=== PATIENT | female | born 1995 | race Caucasian/White ===

== ENCOUNTER 2017-01-20 02:47 | Emergency (ER) | payer MEDICAID ==
[2017-01-20 06:59] LABS: ABSOLUTE BASOPHILS # (AUTO) 0.1 10^3/uL (0.0-0.2); ABSOLUTE EOSINOPHILS # (AUTO) 0.2 10^3/uL (0.0-0.6); ABSOLUTE LYMPHOCYTES (AUTO) 3.9 10^3/uL (0.5-4.7); ABSOLUTE MONOCYTES (AUTO) 0.9 10^3/uL (0.1-1.4); ABSOLUTE NEUT (AUTO) 11.9 10^3/uL (1.7-8.2); BASOPHILS % (AUTO) 0.4 % (0-2); HEMATOCRIT 36.1 % (36.0-47.0); HEMOGLOBIN 12.5 g/dL (12.0-15.5); HGB HCT DIFFERENCE 1.4; LYMPHOCYTES % (AUTO) 23.3 % (13-45); MEAN CORPUSCULAR HEMOGLOBIN 31.5 pg (27.0-33.4); MEAN CORPUSCULAR HGB CONC 34.6 g/dL (32.0-36.0); MEAN CORPUSCULAR VOLUME 91 fl (80-97); MONOCYTES % (AUTO) 5.2 % (3-13); RED BLOOD COUNT 3.97 10^6/uL (3.72-5.28); RED CELL DISTRIBUTION WIDTH 13.3 % (11.5-14.0); SEGMENTED NEUTROPHILS % (AUTO) 70.1 % (42-78); WHITE BLOOD COUNT 16.9 10^3/uL (4.0-10.5)
[2017-01-20 06:59] LABS: APPEARANCE,URINE TURBID; BILIRUBIN,URINE SMALL (NEGATIVE); GLUCOSE, URINE NEGATIVE (NEGATIVE); KETONES,URINE TRACE mg/dL (NEGATIVE); LEUKOCYTE ESTERASE,URINE NEGATIVE (NEGATIVE); NITRITE,URINE NEGATIVE (NEGATIVE); PROTEIN,URINE >=500 mg/dL (NEGATIVE); URINE SPECIFIC GRAVITY 1.031
[2017-01-20] MEDS ORDERED: NORMAL SALINE 1000 ML 1,000 ML IV ONE (07:20)
[2017-01-20 07:21] LABS: ALANINE AMINOTRANSFERASE 34 U/L (9-52); ALBUMIN 4.1 g/dL (3.5-5.0); ALKALINE PHOSPHATASE 72 U/L (38-126); ANION GAP 14 (5-19); ASPARTATE AMINO TRANSFERASE 19 U/L (14-36); BILIRUBIN,DIRECT 0.1 mg/dL (0.0-0.4); BILIRUBIN,TOTAL 0.4 mg/dL (0.2-1.3); BLOOD UREA NITROGEN 8 mg/dL (7-20); CALCIUM 9.4 mg/dL (8.4-10.2); CARBON DIOXIDE 21 mmol/L (22-30); CHLORIDE 103 mmol/L (98-107); CREATININE RESULT 0.72 mg/dL (0.52-1.25); GLUCOSE 98 mg/dL (75-110); SODIUM 138.4 mmol/L (137-145); TOTAL PROTEIN 6.8 g/dL (6.3-8.2)
--- NOTE | 2017-01-20 07:25 | ER Document Report ---
ED GI/ - General Chief Complaint: Vag Bleeding, +preg <12wks Stated Complaint: VAGINAL BLEEDING POST MISCARRIAGE Mode of Arrival: Ambulatory Information source: Patient Notes: Patient states that she currently is 9 weeks , and started to have cramping with vaginal bleeding yesterday. Patient went and saw her [facility] ACC[facility] REPRESENTATIVE and was given a prescription for Cytotec. Patient states that she took the medication and since has developed increased bleeding and cramping. Patient denies any nausea, vomiting, or fever. TRAVEL OUTSIDE OF THE [place] IN LAST 30 DAYS: No - HPI Patient complains to provider of: Pelvic pain, . No: Vomiting Onset: Yesterday Timing/Duration: Persistent Quality of pain: Cramping Pain Level: 4 Context: Location: Pelvis Vaginal bleeding (Compared to normal period): Heavier, Passing clots Menstrual period history: Associated symptoms: denies: Dysuria, Fever, Nausea, Urinary hesitancy, Urinary frequency, Urinary retention, Vomiting Exacerbated by: Denies Relieved by: Denies Similar symptoms previously: Yes Recently seen / treated by doctor: Yes - Related Data Allergies/Adverse Reactions: Penicillins Allergy (Severe, Verified 11/16/14 14:38) Anaphylaxis Past Medical History - General Information source: Patient Last Menstrual Period: 9 weeks - Social History Smoking Status: Current Every Day Smoker Chew tobacco use (# tins/day): No Frequency of alcohol use: None Drug Abuse: None Occupation: none Family History: Reviewed & Not Pertinent Patient has suicidal ideation: No Patient has homicidal ideation: No - Medical History Medical History: Negative Renal/ Medical History: Denies: Hx Peritoneal Dialysis Past Surgical History: Reports: Hx Section Review of Systems - Review of Systems Constitutional: No symptoms reported. denies: Fever, Recent illness EENT: No symptoms reported Cardiovascular: No symptoms reported Respiratory: No symptoms reported Gastrointestinal: Abdominal pain. denies: Diarrhea, Nausea, Vomiting Genitourinary: No symptoms reported. denies: Dysuria, Flank pain Female Genitourinary: , Vaginal bleeding Musculoskeletal: Back pain Skin: No symptoms reported Hematologic/Lymphatic: No symptoms reported Neurological/Psychological: No symptoms reported Physical Exam - Vital signs Vitals: Temp Pulse Resp BP Pulse Ox 98.2 F 106 H 17 131/62 H 98 01/20/17 02:50 01/20/17 02:50 01/20/17 02:50 01/20/17 02:50 01/20/17 02:50 - General General appearance: Appears well, Alert In distress: None - HEENT Head: Normocephalic, Atraumatic Eyes: Normal Nasal: Normal Mouth/Lips: Normal Mucous membranes: Normal Neck: Normal, Supple. No: Lymphadenopathy - Respiratory Respiratory status: No respiratory distress Chest status: Nontender Breath sounds: Normal. No: Rales, Rhonchi, Stridor, Wheezing Chest palpation: Normal - Cardiovascular Rhythm: Regular Heart sounds: S1 appreciated, S2 appreciated Murmur: No - Abdominal Inspection: Obese Distension: No distension Bowel sounds: Normal Tenderness: Tender - Lower pelvic Organomegaly: No organomegaly - Genitourinary External exam: Normal Speculum exam: Other - Unable to visualize cervix due to vaginal length Vaginal bleeding: Mild Bimanuel exam: Other - Mild uterine tenderness. No: Adnexal tenderness - Back Back: Normal, Nontender. No: CVA tenderness - Extremities General upper extremity: Normal inspection, Normal strength General lower extremity: Normal inspection, Normal strength - Neurological Neuro grossly intact: Yes Cognition: Normal [place] Coma Scale Eye Opening: Spontaneous [place] Coma Scale Verbal: Oriented [place] Coma Scale Motor: Obeys Commands [place] Coma Scale Total: 15 - Psychological Associated symptoms: Normal affect, Normal mood - Skin Skin Temperature: Warm Skin Moisture: Dry Skin Color: Normal Course - Re-evaluation Re-evalutation: 01/20/17 08:[address] Higgins regarding patient presentation and management. 01/20/17 09:19 Call placed to consult with Dr. Mei, message left to return call 01/20/17 09:[address] alvarado who recommends having patient call the office before noon today to make a follow-up appointment. Recommends having patient continued to take her tramadol as needed and may give her nausea medication if needed to help with her symptoms. - Vital Signs Vital signs: Temp Pulse Resp BP Pulse Ox 97.9 F 82 16 108/54 L 91 L 01/20/17 09:50 01/20/17 09:50 01/20/17 09:50 01/20/17 09:50 01/20/17 09:50 - Laboratory Result Diagrams: 01/20/17 06:50 01/20/17 06:50 Laboratory results interpreted by me: 01/20/17 01/20/1701/20/17 05:42 06:50 06:50 WBC 16.9 H Absolute Neutrophils 11.9 H Carbon Dioxide 21 L Beta HCG, Quant 1602.40 H Urine Protein >=500 H Urine Ketones TRACE H Urine Blood SMALL H Urine Bilirubin SMALL H Urine Urobilinogen 2.0 H 01/20/17 09:30 Labs- Entire Visit 01/20/17 01/20/17 01/20/17 05:42 06:50 06:50 WBC 16.9 H RBC 3.97 Hgb 12.5 Hct 36.1 MCV 91 MCH 31.5 MCHC 34.6 RDW 13.3 Plt Count 242 Seg Neutrophils % 70.1 Lymphocytes % 23.3 Monocytes % 5.2 Eosinophils % 1.0 Basophils % 0.4 Absolute Neutrophils 11.9 H Absolute Lymphocytes 3.9 Absolute Monocytes 0.9 Absolute Eosinophils 0.2 Absolute Basophils 0.1 Sodium 138.4 Potassium 4.0 Chloride 103 Carbon Dioxide 21 L Anion Gap 14 BUN 8 Creatinine 0.72 Est GFR ( Amer) > 60 Est GFR (Non-Af Amer) > 60 Glucose 98 Calcium 9.4 Total Bilirubin 0.4 Direct Bilirubin 0.1 Indirect Bilirubin Not Reportable Neonat Total Bilirubin Not Reportable AST 19 ALT 34 Alkaline Phosphatase 72 Total Protein 6.8 Albumin 4.1 Beta HCG, Quant 1602.40 H Total Beta HCG POSITIVE Urine Color RED Urine Appearance TURBID Urine pH 5.0 Ur Specific Onset 1.031 Urine Protein >=500 H Urine Glucose (UA) NEGATIVE Urine Ketones TRACE H Urine Blood SMALL H Urine Nitrite NEGATIVE Urine Bilirubin SMALL H Urine Urobilinogen 2.0 H Ur Leukocyte Esterase NEGATIVE Urine RBC (Auto) 1 Urine Mucus (Auto) RARE Urine Ascorbic Acid NEGATIVE Blood Type Rhogam Indicated 01/20/17 06:50 WBC RBC Hgb Hct MCV MCH MCHC RDW Plt Count Seg Neutrophils % Lymphocytes % Monocytes % Eosinophils % Basophils % Absolute Neutrophils Absolute Lymphocytes Absolute Monocytes Absolute Eosinophils Absolute Basophils Sodium Potassium Chloride Carbon Dioxide Anion Gap BUN Creatinine Est GFR ( Amer) Est GFR (Non-Af Amer) Glucose Calcium Total Bilirubin Direct Bilirubin Indirect Bilirubin Neonat Total Bilirubin AST ALT Alkaline Phosphatase Total Protein Albumin Beta HCG, Quant Total Beta HCG Urine Color Urine Appearance Urine pH Ur Specific Onset Urine Protein Urine Glucose (UA) Urine Ketones Urine Blood Urine Nitrite Urine Bilirubin Urine Urobilinogen Ur Leukocyte Esterase Urine RBC (Auto) Urine Mucus (Auto) Urine Ascorbic Acid Blood Type B POSITIVE Rhogam Indicated RHOGAM NOT INDICATED 01/20/17 19:56 - Diagnostic Test Radiology reviewed: Reports reviewed Discharge - Discharge Clinical Impression: Vagina bleeding, Pelvic cramping Condition: Stable Disposition: HOME, SELF-CARE Instructions: Miscarriage Impending ([facility]) Additional Instructions: Return immediately for any new or worsening symptoms, increased pain, increased bleeding, fever, or any concerning symptoms Followup with your primary care provider, call tomorrow to make a followup appointment Call your MAJ[facility] ACCOUNT REPRESENTATIVE office today before noon to make a follow-up appointment to be seen for a recheck. Continue to take your pain medication as prescribed. Referrals: [facility] [Provider Group] - 01/21/17
[2017-01-20] MEDS ORDERED: OXYCODONE-ACETAMINOPHEN 5-325 MG TABLET PO ONE (08:34)
[2017-01-20 10:21] VITALS: BP 108/54
== END 2017-01-20 10:00 | disposition home or self-care (01) ==
LOC: ER 02:47
DX: O20.9 Hemorrhage in early pregnancy, unspecified (principal); R10.2 Pelvic and perineal pain; O99.331 Smoking (tobacco) complicating pregnancy, first trimester; Z3A.09 9 weeks gestation of pregnancy; Z88.0 Allergy status to penicillin
CPT/HCPCS: 99284; 96360; 86900; 86901; 36415; 87086; 84702; 85025; 80053; 81001; 76817; 93976; J7030

== ENCOUNTER 2018-05-15 20:13 | Emergency (ER) | payer MEDICAID ==
--- NOTE | 2018-05-15 20:35 | ER Document Report ---
ED Medical Screen (RME) - General Chief Complaint: Vaginal Bleeding Stated Complaint: CRAMPING, BLEEDING Time Seen by Provider: 05/15/18 20:33 Mode of Arrival: Ambulatory Information source: Patient Notes: This is a 22-year-old female 3 para 1, history of one miscarriage, 17 weeks presents to the ER with some vaginal bleeding with passage of clots. Patient states that she feels like she has had continual fluid leakage. She denies any difficulty urinating. She did call the on-call OB doctor at this hospital was told to come to the emergency room. She denies any significant pain at this time. Her blood type is B+. TRAVEL OUTSIDE OF THE [place] IN LAST 30 DAYS: No - Related Data Allergies/Adverse Reactions: Penicillins Allergy (Severe, Verified 11/16/14 14:38) Anaphylaxis Past Medical History - Social History Chew tobacco use (# tins/day): No Frequency of alcohol use: None Drug Abuse: None Renal/ Medical History: Denies: Hx Peritoneal Dialysis Psychiatric Medical History: Reports: Hx Attention Deficit Hyperactivity Disorder Past Surgical History: Reports: Hx Section
[2018-05-15] MEDS ORDERED: ACETAMINOPHEN 325 MG TABLET PO ONE (21:19)
--- NOTE | 2018-05-15 21:20 | ER Document Report ---
ED GI/ - General Chief Complaint: Vaginal Bleeding Stated Complaint: CRAMPING, BLEEDING Time Seen by Provider: 05/15/18 20:33 Mode of Arrival: Ambulatory Notes: Patient is a 22-year-old female, at 17 weeks gestation by first trimester ultrasound, that comes to the emergency department for chief complaint of vaginal bleeding and lower abdominal cramping. Symptoms started yesterday, she states yesterday she was evaluated at [facility]. She states earlier today she passed a few clots and had heavier bleeding but then this reduced to spotting again. She denies fever, vomiting, dysuria, injury, vaginal discharge otherwise. Past medical history includes 1 miscarriage, 1 , she takes Zofran and likely just, she denies any other medical history. TRAVEL OUTSIDE OF THE [place] IN LAST 30 DAYS: No - Related Data Allergies/Adverse Reactions: Penicillins Allergy (Severe, Verified 11/16/14 14:38) Anaphylaxis Past Medical History - General Information source: Patient - Social History Smoking Status: Current Every Day Smoker Chew tobacco use (# tins/day): No Frequency of alcohol use: None Drug Abuse: None Lives with: Family Family History: Reviewed & Not Pertinent Patient has suicidal ideation: No Patient has homicidal ideation: No Renal/ Medical History: Denies: Hx Peritoneal Dialysis Psychiatric Medical History: Reports: Hx Attention Deficit Hyperactivity Disorder Past Surgical History: Reports: Hx Section - Immunizations Hx Diphtheria, Pertussis, Tetanus Vaccination: Yes Review of Systems - Review of Systems Constitutional: No symptoms reported EENT: No symptoms reported Cardiovascular: No symptoms reported Respiratory: No symptoms reported Gastrointestinal: See HPI Genitourinary: See HPI Female Genitourinary: See HPI Musculoskeletal: No symptoms reported Skin: No symptoms reported Hematologic/Lymphatic: No symptoms reported Neurological/Psychological: No symptoms reported Physical Exam - Vital signs Vitals: Temp Pulse Resp BP Pulse Ox 97.7 F 96 13 123/67 98 05/15/18 20:34 05/15/18 20:34 05/15/18 20:34 05/15/18 20:34 05/15/18 20:34 - Notes Notes: GENERAL: Alert, interacts well. No acute distress. HEAD: Normocephalic, atraumatic. EYES: Pupils equal, round, and reactive to light. Extraocular movements intact. ENT: Oral mucosa moist, tongue midline. NECK: Full range of motion. Supple. Trachea midline. LUNGS: Clear to auscultation bilaterally, no wheezes, rales, or rhonchi. No respiratory distress. HEART: Regular rate and rhythm. No murmur ABDOMEN: Minimal generalized tenderness, nonspecific, not specifically reproducible, no rigidity or guarding. Non-distended. Bowel sounds present in all 4 quadrants. EXTREMITIES: Moves all 4 extremities spontaneously. No edema, normal radial and dorsalis pedis pulses bilaterally. No cyanosis. BACK: no cervical, thoracic, lumbar midline tenderness. No saddle anesthesia, normal distal neurovascular exam. NEUROLOGICAL: Alert and oriented x3. Normal speech. [cranial nerves II through XII grossly intact]. PSYCH: Normal affect, normal mood. SKIN: Warm, dry, normal turgor. No rashes or lesions noted. Course - Re-evaluation Re-evalutation: Patient alert, well-appearing, unremarkable abdominal exam, vital signs unremarkable. CBC, urinalysis without concerning findings. RhoGam is not indicated. Ultrasound showing living IUP, shows marginal placenta previa, otherwise no acute findings. On reevaluation patient sleeping, easily aroused, having minimal spotting occasionally but no heavy bleeding. Provided with a copy of her ultrasound, this was discussed in detail. Patient states she already has a very close follow-up with [facility] for additional management, discussed return precautions, patient states satisfaction and agreement. - Vital Signs Vital signs: Temp Pulse Resp BP Pulse Ox 98.5 F 72 16 115/62 99 05/15/18 23:10 05/15/18 23:10 05/15/18 23:10 05/15/18 23:10 05/15/18 23:10 - Laboratory Result Diagrams: 05/15/18 21:31 Laboratory results interpreted by me: 05/15/18 05/15/18 21:31 22:05 WBC 14.5 H Hct 35.5 L Absolute Neutrophils 10.3 H Urine Urobilinogen 2.0 H Discharge - Discharge Clinical Impression: Vaginal bleeding during Condition: Stable Disposition: HOME, SELF-CARE Additional Instructions: Your ultrasound shows marginal placenta previa, this can cause some bleeding, your hemoglobin is not low at this time. Follow-up with your COMMERCIAL ARTIST for additional evaluation and management including tracking of this. Remaining evaluation does not show any concerning findings. Return if you worsen including heavy bleeding, passing out, severe pain, fever, uncontrolled vomiting, or any other concerning or worsening symptoms. Forms: Smoking Cessation Education Referrals: TRUPTI WALDROP MD [Primary Care Provider] - Follow up as needed
[2018-05-15 21:45] LABS: ABSOLUTE EOSINOPHILS # (AUTO) 0.2 10^3/uL (0.0-0.6); ABSOLUTE LYMPHOCYTES (AUTO) 3.1 10^3/uL (0.5-4.7); ABSOLUTE MONOCYTES (AUTO) 0.9 10^3/uL (0.1-1.4); ABSOLUTE NEUT (AUTO) 10.3 10^3/uL (1.7-8.2); BASOPHILS % (AUTO) 0.3 % (0-2); EOSINOPHILS % (AUTO) 1.2 % (0-6); HEMATOCRIT 35.5 % (36.0-47.0); HEMOGLOBIN 12.1 g/dL (12.0-15.5); LYMPHOCYTES % (AUTO) 21.6 % (13-45); MEAN CORPUSCULAR HEMOGLOBIN 31.9 pg (27.0-33.4); MEAN CORPUSCULAR HGB CONC 34.1 g/dL (32.0-36.0); MEAN CORPUSCULAR VOLUME 94 fl (80-97); MONOCYTES % (AUTO) 5.9 % (3-13); PLATELET COUNT 237 10^3/uL (150-450); RED BLOOD COUNT 3.79 10^6/uL (3.72-5.28); RED CELL DISTRIBUTION WIDTH 13.2 % (11.5-14.0); TOTAL CELLS COUNTED % (AUTO) 100 %; WHITE BLOOD COUNT 14.5 10^3/uL (4.0-10.5)
--- NOTE | 2018-05-15 22:32 | RADIOLOGY REPORT (SQ) ---
EXAM DESCRIPTION: U/S OB LIMITED COMPLETED DATE/TIME: 05/15/2018 10:20 pm REASON FOR STUDY: vag bleed, 17 weeks, assess fluid/cervix COMPARISON: None. TECHNIQUE: Limited transvaginal and transabdominal grayscale ultrasound for evaluation of specific r equested obstetrical parameters. LIMITATIONS: None. FINDINGS: CERVICAL LENGTH: 3.1 cm Closed. HALEY: 11.8 cm. FHR: 163 beats per minute. PRESENTATION: Transverse OTHER: Marginal placenta previa. IMPRESSION: LIMITED OBSTETRICAL ULTRASOUND WITH MEASURED PARAMETERS DELINEATED ABOVE. Of note is marginal placenta previa. Trimester of : Second trimester - 13 weeks 1 day to 27 weeks 6 days. TECHNICAL DOCUMENTATION: JOB ID: [id number] [employer]- All Rights Reserved Reading location - IP/workstation name: [email or web address]
[2018-05-15 22:35] LABS: APPEARANCE,URINE SLIGHTLY-CLOUDY; BILIRUBIN,URINE NEGATIVE (NEGATIVE); COLOR,URINE YELLOW; GLUCOSE, URINE NEGATIVE (NEGATIVE); KETONES,URINE NEGATIVE (NEGATIVE); LEUKOCYTE ESTERASE,URINE NEGATIVE (NEGATIVE); NITRITE,URINE NEGATIVE (NEGATIVE); PROTEIN,URINE NEGATIVE (NEGATIVE); URINE SPECIFIC GRAVITY 1.029
[2018-05-15 23:11] VITALS: BP 115/62
== END 2018-05-15 23:11 | disposition home or self-care (01) ==
LOC: ER 20:13
DX: O20.9 Hemorrhage in early pregnancy, unspecified (principal); R10.30 Lower abdominal pain, unspecified; O99.332 Smoking (tobacco) complicating pregnancy, second trimester; Z3A.17 17 weeks gestation of pregnancy; Z88.0 Allergy status to penicillin
CPT/HCPCS: 99284; 86900; 86901; 36415; 85025; 81001; 76815; J3490

== ENCOUNTER 2018-06-05 19:51 | Emergency (ER) | payer MEDICAID ==
[2018-06-05 20:03] VITALS: BP 124/72
[2018-06-05 21:06] LABS: ABSOLUTE BASOPHILS # (AUTO) 0.1 10^3/uL (0.0-0.2); ABSOLUTE EOSINOPHILS # (AUTO) 0.2 10^3/uL (0.0-0.6); ABSOLUTE LYMPHOCYTES (AUTO) 2.8 10^3/uL (0.5-4.7); ABSOLUTE MONOCYTES (AUTO) 1.1 10^3/uL (0.1-1.4); ABSOLUTE NEUT (AUTO) 13.6 10^3/uL (1.7-8.2); BASOPHILS % (AUTO) 0.3 % (0-2); HEMATOCRIT 36.3 % (36.0-47.0); HEMOGLOBIN 12.2 g/dL (12.0-15.5); LYMPHOCYTES % (AUTO) 15.8 % (13-45); MEAN CORPUSCULAR HEMOGLOBIN 31.6 pg (27.0-33.4); MEAN CORPUSCULAR HGB CONC 33.7 g/dL (32.0-36.0); MEAN CORPUSCULAR VOLUME 94 fl (80-97); MONOCYTES % (AUTO) 6.2 % (3-13); PLATELET COUNT 246 10^3/uL (150-450); RED BLOOD COUNT 3.87 10^6/uL (3.72-5.28); RED CELL DISTRIBUTION WIDTH 13.3 % (11.5-14.0); SEGMENTED NEUTROPHILS % (AUTO) 76.7 % (42-78); TOTAL CELLS COUNTED % (AUTO) 100 %; WHITE BLOOD COUNT 17.8 10^3/uL (4.0-10.5)
[2018-06-05 21:10] LABS: APPEARANCE,URINE CLEAR; BILIRUBIN,URINE NEGATIVE (NEGATIVE); COLOR,URINE YELLOW; GLUCOSE, URINE NEGATIVE (NEGATIVE); KETONES,URINE NEGATIVE (NEGATIVE); LEUKOCYTE ESTERASE,URINE TRACE (NEGATIVE); NITRITE,URINE NEGATIVE (NEGATIVE); PROTEIN,URINE NEGATIVE (NEGATIVE); URINE SPECIFIC GRAVITY 1.011; UROBILINOGEN,URINE NEGATIVE mg/dL (<2.0)
[2018-06-05 21:26] LABS: ALANINE AMINOTRANSFERASE 17 U/L (9-52); ALBUMIN 3.7 g/dL (3.5-5.0); ALKALINE PHOSPHATASE 63 U/L (38-126); ANION GAP 10 (5-19); ASPARTATE AMINO TRANSFERASE 12 U/L (14-36); BILIRUBIN,DIRECT 0.3 mg/dL (0.0-0.4); BILIRUBIN,TOTAL 0.4 mg/dL (0.2-1.3); BLOOD UREA NITROGEN 8 mg/dL (7-20); CALCIUM 9.5 mg/dL (8.4-10.2); CARBON DIOXIDE 22 mmol/L (22-30); CHLORIDE 105 mmol/L (98-107); GLUCOSE 89 mg/dL (75-110); LIPASE 69.1 U/L (23-300); SODIUM 136.9 mmol/L (137-145); TOTAL PROTEIN 6.9 g/dL (6.3-8.2)
== END 2018-06-05 22:00 | disposition left against medical advice (07) ==
LOC: ER 19:51
DX: Z53.21 Procedure and treatment not carried out due to patient leaving prior to being seen by health care provider (principal)
CPT/HCPCS: 36415; 80053; 81001; 83690; 84702; 85025

== ENCOUNTER 2018-08-22 18:19 | Outpatient (CLI) | payer MEDICAID ==
[2018-08-22 19:15] LABS: AMORPHOUS SEDIMENT,URINE TRACE /HPF; APPEARANCE,URINE CLOUDY; BILIRUBIN,URINE NEGATIVE (NEGATIVE); CALCIUM OXALATE CRYSTALS,URINE MODERATE /HPF; COLOR,URINE AMBER; GLUCOSE, URINE NEGATIVE (NEGATIVE); KETONES,URINE NEGATIVE (NEGATIVE); LEUKOCYTE ESTERASE,URINE NEGATIVE (NEGATIVE); NITRITE,URINE NEGATIVE (NEGATIVE); PROTEIN,URINE 30 mg/dL (NEGATIVE); URINE SPECIFIC GRAVITY 1.028
[2018-08-22 19:31] LABS: URINE AMPHETAMINES SCREEN NEGATIVE; URINE BARBITURATES SCREEN NEGATIVE; URINE BENZODIAZEPINES SCREEN NEGATIVE; URINE COCAINE SCREEN NEGATIVE; URINE MARIJUANA (THC) SCREEN NEGATIVE; URINE METHADONE SCREEN NEGATIVE; URINE PHENCYCLIDINE SCREEN NEGATIVE
== END 2018-08-22 20:30 | disposition home or self-care (01) ==
LOC: LC 18:19
PROVIDERS: ATTEND Obstetrics & Gynecology
PROC: 4A1HXCZ Monitoring of Products of Conception, Cardiac Rate, External Approach (ICD-10-PCS; principal; 2018-08-22)
DX: O26.893 Other specified pregnancy related conditions, third trimester (principal); E86.0 Dehydration; Z3A.30 30 weeks gestation of pregnancy
CPT/HCPCS: 80307; 81001

== ENCOUNTER 2018-10-19 06:14 | Inpatient (IN) | payer MEDICAID ==
[2018-10-18 11:00] LABS: ABSOLUTE EOSINOPHILS # (AUTO) 0.2 10^3/uL (0.0-0.6); ABSOLUTE LYMPHOCYTES (AUTO) 2.9 10^3/uL (0.5-4.7); ABSOLUTE MONOCYTES (AUTO) 0.9 10^3/uL (0.1-1.4); ABSOLUTE NEUT (AUTO) 8.7 10^3/uL (1.7-8.2); BASOPHILS % (AUTO) 0.3 % (0-2); EOSINOPHILS % (AUTO) 1.5 % (0-6); HEMATOCRIT 36.4 % (36.0-47.0); HEMOGLOBIN 12.5 g/dL (12.0-15.5); LYMPHOCYTES % (AUTO) 22.8 % (13-45); MEAN CORPUSCULAR HEMOGLOBIN 31.4 pg (27.0-33.4); MEAN CORPUSCULAR HGB CONC 34.3 g/dL (32.0-36.0); MEAN CORPUSCULAR VOLUME 92 fl (80-97); MONOCYTES % (AUTO) 7.2 % (3-13); PLATELET COUNT 274 10^3/uL (150-450); RED BLOOD COUNT 3.98 10^6/uL (3.72-5.28); RED CELL DISTRIBUTION WIDTH 13.6 % (11.5-14.0); SEGMENTED NEUTROPHILS % (AUTO) 68.2 % (42-78); TOTAL CELLS COUNTED % (AUTO) 100 %; WHITE BLOOD COUNT 12.8 10^3/uL (4.0-10.5)
[2018-10-18 12:07] LABS: AMORPHOUS SEDIMENT,URINE TRACE /HPF; APPEARANCE,URINE CLOUDY; BILIRUBIN,URINE NEGATIVE (NEGATIVE); GLUCOSE, URINE NEGATIVE (NEGATIVE); KETONES,URINE NEGATIVE (NEGATIVE); LEUKOCYTE ESTERASE,URINE NEGATIVE (NEGATIVE); NITRITE,URINE NEGATIVE (NEGATIVE); PROTEIN,URINE NEGATIVE (NEGATIVE); URINE SPECIFIC GRAVITY 1.025
[2018-10-18 12:08] LABS: COLOR,URINE DARK YELLOW
[2018-10-18 12:21] LABS: URINE AMPHETAMINES SCREEN NEGATIVE; URINE BARBITURATES SCREEN NEGATIVE; URINE BENZODIAZEPINES SCREEN NEGATIVE; URINE COCAINE SCREEN NEGATIVE; URINE MARIJUANA (THC) SCREEN NEGATIVE; URINE METHADONE SCREEN NEGATIVE; URINE PHENCYCLIDINE SCREEN NEGATIVE
[2018-10-18 13:33] LABS: CHLAM PCR NOT DETECTED (NOT DETECT); GON PCR NOT DETECTED (NOT DETECT)
[~2018-10-19 06:14] MED LIST: LACTATED RINGERS 1000 ML IV PRN; LIDOCAINE 0.5% INJ-PF (5 MG/ML) 50 ML SDV SUBCUT PRN
[2018-10-19] MEDS ORDERED: CEFAZOLIN 2 GM/D5W RTU 2 GM/50 ML RTUPB IV ONE (06:22)
[2018-10-19] MEDS ORDERED: RINGERS SOLUTION,LACTATED 1,000 ML IV ONE (08:15)
[2018-10-19] MEDS ORDERED: FENTANYL CITRATE INJ/PF 100 MCG/2 ML AMPUL ONE ×2 (09:07→10:59)
[2018-10-19] MEDS ORDERED: PROPOFOL INJ 200 MG/20 ML VIAL IV ONE (09:07)
[2018-10-19] MEDS ORDERED: OXYTOCIN 10 UNIT/ML VIAL ONE (09:07)
[2018-10-19] MEDS ORDERED: MIDAZOLAM 2 MG/2 ML INJ ONE (09:07)
[2018-10-19] MEDS ORDERED: BUPIVACAINE HCL/DEX-WATER/PF 15 MG/2 ML AMPULE ONE (09:07)
[2018-10-19] MEDS ORDERED: EPHEDRINE SULFATE INJ 50 MG/1 ML AMPULE ONE (09:07)
[2018-10-19] MEDS ORDERED: DIPHENHYDRAMINE HCL 50 MG/ML VIAL ONE (09:58)
[2018-10-19] MEDS ORDERED: MEPERIDINE HCL/PF INJ 25 MG/1 ML DISP.SYRIN IV PRN (10:22)
[2018-10-19] MEDS ORDERED: FENTANYL CITRATE INJ/PF 100 MCG/2 ML AMPUL IV PRN ×3 (10:22)
[2018-10-19] MEDS ORDERED: MORPHINE SULFATE 10 MG/ML INJ IV PRN (10:22)
[2018-10-19] MEDS ORDERED: DIPHENHYDRAMINE HCL 50 MG/ML VIAL IV PRN (10:22)
[2018-10-19] MEDS ORDERED: ONDANSETRON HCL INJ/PF 4 MG/2 ML SDV IV PRN (10:22)
[2018-10-19] MEDS ORDERED: PROMETHAZINE HCL INJ 25 MG/1 ML VIAL IV PRN ×2 (10:22→10:37)
--- NOTE | 2018-10-19 10:35 | PDOC DELIVERY SUMMARY ---
Delivery Summary - Maternal Hx : Hx # Term Pregnancies: 1 Hx Total # of Abortions (Sponateous & Elective): 6 GARRICK: 10/25/18 Gestational Age: 39 Ruptured Membranes: AROM Fluids: Clear - Delivery Presentation: Vertex Heart Rate Monitoring: Done Pre-Operatively Support Person Present: Yes Location: OR : Scheduled Placenta: Within Normal Limits Delivery of Placenta Date: 10/19/18 Delivery of Placenta Time: 09:56 - Medications Type of Anesthesia:: Spinal - Infant Assess and Care Baby 1 Male Delivery of Date: 10/19/18 Delivery of Time: 09:56 at 1 minute: 9 at 5 minutes: 9 Preprinted Number On Band: [id number] Infant Skin to Skin: Yes Skin to Skin (Mins): 3 To Nursery At: 10:06 Mode of Transport: Bassinet Delivery Weight: 3,200 Delivery Length: 19 in - Delivery Personnel Travel Registered Nurse Nicu: FLAKO SHAW RN: TIFFANY PERKINS RN: KALIA TORRES RN: BEN YIN MD: MAURILIO MARTIN
[2018-10-19] MEDS ORDERED: SIMETHICONE 80 MG TAB.CHEW PO PRN (10:37)
[2018-10-19] MEDS ORDERED: ACETAMINOPHEN 325 MG TABLET PO PRN (10:37)
[2018-10-19] MEDS ORDERED: DIPH/PERTUSS(ACELL)/TETANUS VAC/PF 0.5 ML SYR (>=10YO) IM PRN (10:37)
[2018-10-19] MEDS ORDERED: RINGERS SOLUTION,LACTATED 1,000 ML IV PRN (10:37)
[2018-10-19] MEDS ORDERED: OXYCODONE-ACETAMINOPHEN 5-325 MG TABLET PO PRN (10:37)
[2018-10-19] MEDS ORDERED: OXYTOCIN/NORMAL SALINE 20 UNIT/1,000 ML RTUINJ IV PRN (10:37)
[2018-10-19] MEDS ORDERED: MEASLES,MUMPS&RUBELLA VACC/PF 0.5 ML VIAL SUBCUT PRN (10:37)
[2018-10-19] MEDS ORDERED: ACETAMINOPHEN 1,000 MG/100 ML RTUPB IV PRN (10:37)
--- NOTE | 2018-10-19 10:37 | Operative Report ---
Operative Report DATE OF SURGERY: 10/19/18 PREOPERATIVE DIAGNOSIS: Patient desires a repeat via low transverse u terine incision to prevent risk of uterine rupture and also requests tubal ligation POSTOPERATIVE DIAGNOSIS: Same OPERATION: Repeat via low transverse uterine incision and [place] tubal ligation SURGEON: MAURILIO MARTIN ANESTHESIA: Spinal TISSUE REMOVED OR ALTERED: Placenta and portions of each fallopian tube COMPLICATIONS: None ESTIMATED BLOOD LOSS: 250 cc INTRAOPERATIVE FINDINGS: Viable . Normal uterus tubes and ovaries. PROCEDURE: Patient was taken to the OR and placed in supine position after her spinal anesthesia. She is prepared and draped in sterile fashion. Mead was placed for drainage of the bladder. Low transverse incision was made and carried down the level of the fascia. The fascial incision was made with knife and extended bilaterally with curved Bailey scissors. The fascia was off the rectus muscles using sharp and blunt dissection. The rectus muscles are in the midline. The peritoneum was entered without incident. Bladder blade was placed in uterine segment was identified. A low transverse incision was made creating a bladder flap. Bladder blade was placed low transverse uterine incision was made with the knife and extended with fingertips. The baby was delivered with some fundal pressure. Mouth and nose were suctioned free. The cord is doubly clamped and cut. Baby is passed off to the claims customer service representative in attendance. The placenta was manually extracted with trailing membranes. The uterus was externalized wrapped in a moist lap sponge. Uterine contents wiped free. Uterus was closed with a running locking layer of 0 chromic suture using the second layer to imbricate the first completing a double layer closure of the uterus. The serosa was closed with a running 2-0 chromic stitch. The pelvis was irrigated and suctioned free of fluid the uterus was replaced in the abdomen. The abdominal wall peritoneum was closed with running 2-0 chromic stitch. Fascia was closed with a running 0 Vicryl in 2 segments. Joe's layer was brought together with 0 plain gut stitch and the skin was closed with running subcuticular 4-0 undyed Vicryl stitch. The wound was dressed mother and baby did well.
[2018-10-19] MEDS ORDERED: ACETAMINOPHEN 1,000 MG/100 ML RTUPB IV ONE (10:54)
[2018-10-19] MEDS: MORPHINE SULFATE 10 MG/ML INJ ONE ×3 (11:56→12:06)
[2018-10-19] MEDS ORDERED: MORPHINE SULFATE 10 MG/ML INJ ONE (12:16)
[2018-10-19] MEDS: IBUPROFEN 800 MG TABLET PO SCH ×2 (13:17→18:28)
[2018-10-19] MEDS: KETOROLAC TROMETHAMINE INJ/PF 30 MG/1 ML SDV IV SCH ×2 (13:26→21:15)
[2018-10-19] MEDS: OXYCODONE-ACETAMINOPHEN 5-325 MG TABLET PO PRN ×3 (13:27→21:24)
[2018-10-19] MEDS ORDERED: OXYTOCIN/NORMAL SALINE 20 UNIT/1,000 ML RTUINJ ONE (14:43)
[2018-10-19] MEDS: DOCUSATE SODIUM 100 MG CAPSULE PO SCH (21:16)
--- NOTE | 2018-10-19 21:36 | Operative Report ---
Nonrecallable Operative Report DATE OF SURGERY: 10/19/18 PREOPERATIVE DIAGNOSIS: Addendum to the with the addition of a [place] tubal ligation POSTOPERATIVE DIAGNOSIS: Same OPERATION: [place] tubal ligation SURGEON: MAURILIO MARTIN ANESTHESIA: Spinal TISSUE REMOVED OR ALTERED: Fallopian tubes COMPLICATIONS: None ESTIMATED BLOOD LOSS: None INTRAOPERATIVE FINDINGS: Normal fallopian tubes PROCEDURE: This is an addendum to the . After closing the uterus I performed a [place] tubal ligation by cauterizing an area in the broad ligament tying off a section of fallopian tube on each side with 0 chromic suture and excising that portion of tube. The cut edge of each tube was cauterized. Please refer to the remainder of the report
[2018-10-20] MEDS: OXYCODONE-ACETAMINOPHEN 5-325 MG TABLET PO PRN ×3 (01:43→20:52)
[2018-10-20] MEDS: IBUPROFEN 800 MG TABLET PO SCH ×6 (01:48→23:57)
[2018-10-20] MEDS: KETOROLAC TROMETHAMINE INJ/PF 30 MG/1 ML SDV IV SCH (05:51)
[2018-10-20 06:39] LABS: HEMATOCRIT 32.4 % (36.0-47.0); HEMOGLOBIN 10.9 g/dL (12.0-15.5); MEAN CORPUSCULAR HGB CONC 33.7 g/dL (32.0-36.0); MEAN CORPUSCULAR VOLUME 92 fl (80-97); PLATELET COUNT 231 10^3/uL (150-450); RED BLOOD COUNT 3.53 10^6/uL (3.72-5.28); RED CELL DISTRIBUTION WIDTH 13.7 % (11.5-14.0); WHITE BLOOD COUNT 15.6 10^3/uL (4.0-10.5)
--- NOTE | 2018-10-20 09:58 | PDOC PROGRESS REPORT ---
Subjective-OB Progress Note for:: 10/20/18 Subjective: pt without complaints Physical Exam (OB) Vital Signs: Temp Pulse Resp BP Pulse Ox 98.0 F 72 16 122/74 97 10/20/18 08:16 10/20/18 08:16 10/20/18 08:16 10/20/18 08:16 10/20/18 08:16 Intake & Output 10/19/18 10/20/18 10/21/18 06:59 06:59 06:59 Intake Total 3364 Output Total 2032 Balance 1332 Weight 102.512 kg 107.8 kg - PIH/Pre-Eclampsia DTR's: 2 + Clonus: Negative Headache: Present Epigastric Pain: No Visual Changes: No - Dressing Removed: No Incision: Dressing Closure Type: opsite - Lochia Lochia Amount: Scant < 10 ml Lochia Color: Rubra/Red - Abdomen Description: Soft, Round Hernia Present: No Fundal Description: Firm, Midline Fundal Height: u/u - u/2 - Respiratory Breath sounds: Clear - Abdominal Distension: No distension Objective-Diagnostic Laboratory: 10/20/18 06:04 10/20/18 06:04 WBC 15.6 H RBC 3.53 L Hgb 10.9 L Hct 32.4 L MCV 92 MCH 31.0 MCHC 33.7 RDW 13.7 Plt Count 231 Assessment and Plan(PN) Plan:: routine post op care - Time Spent with Patient Time with patient: Less than 15 minutes Medications reviewed and adjusted accordingly: Yes - Disposition Anticipated Discharge: Home Within: within 24 hours
[2018-10-20] MEDS: DOCUSATE SODIUM 100 MG CAPSULE PO SCH ×2 (11:22→18:29)
[2018-10-20] MEDS: PRENATAL VITAMIN W DHA CAPSULE PO SCH (11:22)
[2018-10-21] MEDS: OXYCODONE-ACETAMINOPHEN 5-325 MG TABLET PO PRN (04:00)
[2018-10-21] MEDS: IBUPROFEN 800 MG TABLET PO SCH ×2 (05:43→11:18)
--- NOTE | 2018-10-21 09:57 | PDOC DISCHARGE SUMMARY ---
Final Diagnosis Discharge Date: 10/21/18 - Final Diagnosis (1) Status post repeat low transverse section Is this a current diagnosis for this admission?: Yes Discharge Data - Discharge Medication Home Medications: Omeprazole Magnesium [Prilosec Otc] 20 mg PO DAILY 08/22/18 Vit 93/Iron Fum/Folic [ Formula Tablet] 1 tab PO DAILY 08/22/18 Reason(s) for Admission: Ceasarean Section-Repeat Procedures: NST Intrapartum Procedure(s): : Low Cervical, Transverse - Diagnosis Test Laboratory: Temp Pulse Resp BP Pulse Ox 98.4 F 80 16 125/75 100 10/21/18 08:00 10/21/18 08:00 10/21/18 08:00 10/21/18 08:00 10/21/18 08:00 10/18/18 10/18/18 10/20/18 10:25 10:30 06:04 RBC 3.98 3.53 L Hgb 12.5 10.9 L Hct 36.4 32.4 L Urine Opiates Screen NEGATIVE - Discharge information/Instructions Discharge Activity: Balance Activity w/Rest, No Lifting Over 10 Pounds, No Lifting/Push/Pulling, Pelvic Rest, No tub bath Discharge Diet: Regular Disposition: HOME, SELF-CARE Follow up with: [facility] in: 5, Days
[2018-10-21 11:00] VITALS: BP 111/71
[2018-10-21] MEDS: DOCUSATE SODIUM 100 MG CAPSULE PO SCH (11:18)
[2018-10-21] MEDS: PRENATAL VITAMIN W DHA CAPSULE PO SCH (11:19)
== END 2018-10-21 13:16 | disposition home or self-care (01) | DRG 785 ==
LOC: 2S 06:14
PROVIDERS: ADMIT Obstetrics & Gynecology; ATTEND Obstetrics & Gynecology
PROC: 0UB70ZZ Excision of Bilateral Fallopian Tubes, Open Approach (ICD-10-PCS; 2018-10-19)
PROC: 4A1HXCZ Monitoring of Products of Conception, Cardiac Rate, External Approach (ICD-10-PCS; 2018-10-19)
PROC: 10D00Z1 Extraction of Products of Conception, Low, Open Approach (ICD-10-PCS; principal; 2018-10-19 09:15)
DX: O40.3XX0 Polyhydramnios, third trimester, not applicable or unspecified (principal); Z30.2 Encounter for sterilization; O34.211 Maternal care for low transverse scar from previous cesarean delivery; O99.334 Smoking (tobacco) complicating childbirth; F17.210 Nicotine dependence, cigarettes, uncomplicated; O24.420 Gestational diabetes mellitus in childbirth, diet controlled; Z3A.39 39 weeks gestation of pregnancy; Z37.0 Single live birth
CPT/HCPCS: 1961; 36415; 59025; 80307; 81001; 82962; 85025; 85027; 86850; 86900; 86901; 87491; 87591; 88302; 94799; J0131; J0690; J1200; J1885; J2250; J2270; J2550; J2590; J2704; J3010; J3490

== ENCOUNTER 2019-02-13 07:51 | Day surgery (SDC) | payer MEDICAID ==
[2019-02-10 10:57] LABS: HEMATOCRIT 40.2 % (36.0-47.0); HEMOGLOBIN 13.6 g/dL (12.0-15.5); MEAN CORPUSCULAR HEMOGLOBIN 30.4 pg (27.0-33.4); MEAN CORPUSCULAR HGB CONC 33.9 g/dL (32.0-36.0); MEAN CORPUSCULAR VOLUME 90 fl (80-97); PLATELET COUNT 299 10^3/uL (150-450); RED BLOOD COUNT 4.48 10^6/uL (3.72-5.28); RED CELL DISTRIBUTION WIDTH 13.9 % (11.5-14.0)
[2019-02-10 11:19] LABS: APPEARANCE,URINE CLEAR; BILIRUBIN,URINE NEGATIVE (NEGATIVE); COLOR,URINE YELLOW; GLUCOSE, URINE NEGATIVE (NEGATIVE); KETONES,URINE NEGATIVE (NEGATIVE); LEUKOCYTE ESTERASE,URINE NEGATIVE (NEGATIVE); NITRITE,URINE NEGATIVE (NEGATIVE); PROTEIN,URINE NEGATIVE (NEGATIVE); URINE SPECIFIC GRAVITY 1.023; UROBILINOGEN,URINE NEGATIVE mg/dL (<2.0)
[~2019-02-13 07:51] MED LIST changes: +CLINDAMYCIN 900 MG/D5W RTU 900 MG/50 ML RTUPB IV ONE; +CLINDAMYCIN 900 MG/D5W RTU 900 MG/50 ML RTUPB IV PRN; +DEXAMETHASONE SOD PHOSPHATE INJ 4 MG/1 ML VIAL ONE; +FENTANYL CITRATE INJ/PF 100 MCG/2 ML AMPUL ONE; +MIDAZOLAM 2 MG/2 ML INJ ONE; +ONDANSETRON HCL INJ/PF 4 MG/2 ML SDV ONE; +PROPOFOL INJ 200 MG/20 ML VIAL IV ONE
[2019-02-13] MEDS ORDERED: LIDOCAINE 1%/EPINEPHRINE INJ 20 ML VIAL ONE (10:37)
[2019-02-13] MEDS ORDERED: PROMETHAZINE HCL INJ 25 MG/1 ML VIAL IV PRN ×2 (10:46)
[2019-02-13] MEDS ORDERED: MEPERIDINE HCL/PF INJ 25 MG/1 ML DISP.SYRIN IV PRN (10:46)
[2019-02-13] MEDS ORDERED: ONDANSETRON HCL INJ/PF 4 MG/2 ML SDV IV PRN (10:46)
[2019-02-13] MEDS ORDERED: FENTANYL CITRATE INJ/PF 100 MCG/2 ML AMPUL IV PRN ×3 (10:46)
[2019-02-13] MEDS ORDERED: DIPHENHYDRAMINE HCL 50 MG/ML VIAL IV PRN (10:46)
[2019-02-13] MEDS ORDERED: MORPHINE SULFATE 10 MG/ML INJ IV PRN (10:46)
[2019-02-13] MEDS ORDERED: IBUPROFEN 800 MG TABLET PO PRN (10:56)
[2019-02-13] MEDS ORDERED: OXYCODONE-ACETAMINOPHEN 5-325 MG TABLET PO PRN ×2 (10:56)
[2019-02-13] MEDS ORDERED: KETOROLAC TROMETHAMINE INJ/PF 30 MG/1 ML SDV IV PRN (10:56)
[2019-02-13] MEDS ORDERED: RINGERS SOLUTION,LACTATED 1,000 ML IV PRN (10:56)
--- NOTE | 2019-02-13 10:59 | Operative Report ---
Operative Report DATE OF SURGERY: 02/13/19 PREOPERATIVE DIAGNOSIS: Subcutaneous nodule in incision POSTOPERATIVE DIAGNOSIS: Same, appears to be fat necrosis OPERATION: Excision of subcu nodule SURGEON: MAURILIO MARTIN ANESTHESIA: GA TISSUE REMOVED OR ALTERED: Subcu nodule COMPLICATIONS: None ESTIMATED BLOOD LOSS: 5 cc INTRAOPERATIVE FINDINGS: Appears to be a 2 cm nodule of fat necrosis PROCEDURE: Patient is taken the OR and placed in supine position. General anesthesia was induced. Her abdomen was prepared and draped in sterile fashion. Incision was made over the nodule. Initially was thought to be and endometrioma however it was much more superficial. It appears to be a 2 cm nodule fat necrosis. This was excised completely and passed off the field for specimen. There was minimal bleeding. The wound was infiltrated with dilute solution of lidocaine and epinephrine. The skin was closed with a running subcu 4-0 undyed Vicryl stitch and dressing was placed. She is extubated in the OR and taken recovery room in stable condition.
--- NOTE | 2019-02-13 11:04 | Discharge Summary ---
Discharge Summary (SDC) - Discharge Final Diagnosis: 2 cm nodule fat necrosis in the incision Date of Surgery: 02/13/19 Discharge Date: 02/13/19 Condition: Good Prescriptions: Oxycodone HCl/Acetaminophen [Percocet 5-325 mg Tablet] 1 tab PO Q4HP PRN #20 tablet PRN Reason: Referrals: BECCA EMJIA MD [Primary Care Provider] - Discharge Diet: Regular Discharge Activity: Activity As Tolerated, Slowly Increase Activity Report the Following to Your Physician Immediately: Fever over 101 Degrees
[2019-02-13] MEDS ORDERED: OXYCODONE-ACETAMINOPHEN 5-325 MG TABLET ONE (11:47)
[2019-02-13] MEDS ORDERED: DIPHENHYDRAMINE HCL 25 MG CAPSULE ONE (12:27)
[2019-02-13] MEDS ORDERED: SUCCINYLCHOLINE CHLORIDE INJ 200 MG/10 ML VIAL ONE (13:25)
[2019-02-13] MEDS ORDERED: KETOROLAC TROMETHAMINE 60 MG/2 ML SDV ONE (13:25)
[2019-02-13 14:12] VITALS: BP 108/60
== END 2019-02-13 12:50 | disposition home or self-care (01) ==
LOC: OROUT 07:51
PROVIDERS: ATTEND Obstetrics & Gynecology
DX: M79.89 Other specified soft tissue disorders (principal); E07.9 Disorder of thyroid, unspecified; F17.210 Nicotine dependence, cigarettes, uncomplicated; Z88.0 Allergy status to penicillin; Z79.899 Other long term (current) drug therapy
CPT/HCPCS: 36415 ×2; 84703; 85027; 81001; 88305 ×2; 22902; J2250; J1100; J3490 ×3; J1885; J3010; J0330; J2405; J2704; 400

== ENCOUNTER 2020-04-29 14:18 | Observation (INO) | payer MEDICAID ==
[2020-04-29] MEDS ORDERED: NORMAL SALINE 1000 ML 1,000 ML IV ONE (16:12)
[2020-04-29] MEDS ORDERED: ONDANSETRON HCL INJ/PF 4 MG/2 ML SDV IV ONE (16:12)
[2020-04-29] MEDS ORDERED: HYDROCODONE/ACETAMINOPHEN 5-325 MG TABLET PO ONE (16:12)
--- NOTE | 2020-04-29 16:16 | ER Document Report ---
ED Medical Screen (RME) - General Chief Complaint: Drainage from Breast Stated Complaint: ABSCESS/LEFT BREAST,DRAINAGE Time Seen by Provider: 04/29/20 16:00 Primary Care Provider: BECCA MEJIA MD [Primary Care Provider] - Follow up as needed Mode of Arrival: Wheelchair Information source: Patient Notes: Patient is a 24-year-old female who states she was seen here by [facility]/[employer]ERK for an abscess on her left breast. According to patient she started having a mass in her left breast prior to 11 April. This when she started going to the [facility] there they did send her out for a ultrasound to a outside facility [place] by the [place] where she was diagnosed with the abscess. She states that is gotten worse and it is now leaking out her nip ple. She states that it is leaking anything from an orange to green to a yellow to blood out of her nipple. She has been on Keflex and has just finished another course. Patient states it is getting so bad that it feels like her breast is going to open up. Although the drainage is coming from the nipple according to patient. She is here today because she has been unable to keep any food down for the last 3 days she has had excessive nausea with pain and discomfort and vomiting. Physical examination: Patient is a well-nourished well-developed 24-year-old female in no apparent distress but is in obvious discomfort. Cardiac: She does display regular rate and rhythm currently without any murmurs. Lungs: Bilateral breath sounds increased clear to auscultation no rhonchi wheezes rales heard. Abdomen: Bowel sounds present all 4 quads nontender. Breast. It is difficult to do an exam on the breast at present although it appears larger than the left through a short further evaluation to be done when she is still room in the back. I have greeted and performed a rapid initial assessment of this patient. A comprehensive ED assessment and evaluation of the patient, analysis of test results and completion of the medical decision making process will be conducted by additional ED providers. Dictation of this chart was performed using voice recognition software; therefore, there may be some unintended grammatical errors. TRAVEL OUTSIDE OF THE [place] IN LAST 30 DAYS: No - Related Data Allergies/Adverse Reactions: Penicillins Allergy (Severe, Verified 02/09/19 10:49) Anaphylaxis cephalexin [From Keflex] Adverse Reaction (Severe, Verified 04/29/20 16:00) GI upset Home Medications: tramadol Past Medical History - Social History Chew tobacco use (# tins/day): No Frequency of alcohol use: Rare Drug Abuse: None - Past Medical History Cardiac Medical History: Denies: Hx Coronary Artery Disease, Hx Heart Attack, Hx Hypertension Pulmonary Medical History: Denies: Hx Asthma, Hx Bronchitis, Hx COPD, Hx Pneumonia Neurological Medical History: Denies: Hx Cerebrovascular Accident, Hx Seizures Renal/ Medical History: Denies: Hx Ovarian Cysts, Hx Peritoneal Dialysis, Hx Pelvic Inflammatory Disease Malignancy Medical History: Denies: Hx Breast Cancer, Hx Cervical Cancer, Hx Ovarian Cancer GI Medical History: Reports: Hx Gastroesophageal Reflux Disease. 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, Denies Hx Fibromyalgia Psychiatric Medical History: Reports: Hx Attention Deficit Hyperactivity Disorder, Hx Bipolar Disorder - not on medication Denies: Hx Depression, Hx Post Traumatic Stress Disorder, Hx Schizophrenia Traumatic Medical History: Reports: Hx Fractures - RIGHT LEG, bilateral ankles, right wrist Past Surgical History: Reports: Hx Section - Immunizations Hx Diphtheria, Pertussis, Tetanus Vaccination: Yes Physical Exam - Vital signs Vitals: Temp Pulse Resp BP Pulse Ox 98 F 85 19 102/64 100 04/29/20 14:30 04/29/20 14:30 04/29/20 14:30 04/29/20 14:30 04/29/20 14:30 Course - Vital Signs Vital signs: Temp Pulse Resp BP Pulse Ox 98 F 85 19 102/64 100 04/29/20 14:30 04/29/20 14:30 04/29/20 14:30 04/29/20 14:30 04/29/20 14:30 Doctor's Discharge - Discharge Referrals: BECCA MEJIA MD [Primary Care Provider] - Follow up as needed
[2020-04-29 17:50] LABS: ABSOLUTE BASOPHILS # (AUTO) 0.1 10^3/uL (0.0-0.2); ABSOLUTE EOSINOPHILS # (AUTO) 0.3 10^3/uL (0.0-0.6); ABSOLUTE MONOCYTES (AUTO) 1.1 10^3/uL (0.1-1.4); ABSOLUTE NEUT (AUTO) 12.4 10^3/uL (1.7-8.2); BASOPHILS % (AUTO) 0.4 % (0-2); EOSINOPHILS % (AUTO) 1.6 % (0-6); HEMATOCRIT 38.9 % (36.0-47.0); HEMOGLOBIN 12.9 g/dL (12.0-15.5); LYMPHOCYTES % (AUTO) 17.6 % (13-45); MEAN CORPUSCULAR HEMOGLOBIN 30.6 pg (27.0-33.4); MEAN CORPUSCULAR HGB CONC 33.1 g/dL (32.0-36.0); MEAN CORPUSCULAR VOLUME 92 fl (80-97); MONOCYTES % (AUTO) 6.7 % (3-13); PLATELET COUNT 337 10^3/uL (150-450); RED BLOOD COUNT 4.21 10^6/uL (3.72-5.28); RED CELL DISTRIBUTION WIDTH 12.6 % (11.5-14.0); SEGMENTED NEUTROPHILS % (AUTO) 73.7 % (42-78); TOTAL CELLS COUNTED % (AUTO) 100 %; WHITE BLOOD COUNT 16.8 10^3/uL (4.0-10.5)
[2020-04-29 18:13] LABS: ALBUMIN 4.1 g/dL (3.5-5.0); ALKALINE PHOSPHATASE 81 U/L (38-126); ANION GAP 8 (5-19); ASPARTATE AMINO TRANSFERASE 22 U/L (14-36); BILIRUBIN,DIRECT 0.1 mg/dL (0.0-0.4); BILIRUBIN,TOTAL 0.6 mg/dL (0.2-1.3); BLOOD UREA NITROGEN 11 mg/dL (7-20); CARBON DIOXIDE 27 mmol/L (22-30); CHLORIDE 100 mmol/L (98-107); GLUCOSE 90 mg/dL (75-110); POTASSIUM 4.4 mmol/L (3.6-5.0); TOTAL PROTEIN 7.7 g/dL (6.3-8.2)
--- NOTE | 2020-04-29 18:21 | ER Document Report ---
ED Skin Rash/Insect Bite/Abscs - General Chief Complaint: Drainage from Breast Stated Complaint: ABSCESS/LEFT BREAST,DRAINAGE Time Seen by Provider: 04/29/20 16:00 Primary Care Provider: BECCA MEJIA MD [Primary Care Provider] - Follow up as needed Mode of Arrival: Wheelchair Notes: 24-year-old woman presents to the emergency department with a history of a left breast abscess which has been intermittently draining from the nipple. She saw her primary care doctor was put on Keflex and a mammogram was performed. She states that since that time the area has gotten much larger and more painful. She denies fever, or prior history of similar episodes. TRAVEL OUTSIDE OF THE [place] IN LAST 30 DAYS: No - Related Data Allergies/Adverse Reactions: Penicillins Allergy (Severe, Verified 02/09/19 10:49) Anaphylaxis cephalexin [From Keflex] Adverse Reaction (Severe, Verified 04/29/20 16:00) GI upset Home Medications: tramadol Past Medical History - General Information source: Patient - Social History Smoking Status: Current Every Day Smoker Chew tobacco use (# tins/day): No Frequency of alcohol use: Rare Drug Abuse: None Family History: Reviewed & Not Pertinent Patient has homicidal ideation: No - Past Medical History Cardiac Medical History: Denies: Hx Coronary Artery Disease, Hx Heart Attack, Hx Hypertension Pulmonary Medical History: Denies: Hx Asthma, Hx Bronchitis, Hx COPD, Hx Pneumonia Neurological Medical History: Denies: Hx Cerebrovascular Accident, Hx Seizures Renal/ Medical History: Denies: Hx Ovarian Cysts, Hx Peritoneal Dialysis, Hx Pelvic Inflammatory Disease Malignancy Medical History: Denies: Hx Breast Cancer, Hx Cervical Cancer, Hx Ovarian Cancer GI Medical History: Reports: Hx Gastroesophageal Reflux Disease. 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 HENT: Negative for sore throat. Eyes: Negative for visual changes. Cardiovascular: Negative for chest pain. Respiratory: Negative for shortness of breath. Gastrointestinal: Negative for abdominal pain, vomiting or diarrhea. Genitourinary: Negative for dysuria. Musculoskeletal: Negative for back pain. Skin: See HPI. Neurological: Negative for headaches, weakness or numbness. 10 point ROS negative except as marked above and in HPI. Physical Exam - Vital signs Vitals: Temp Pulse Resp BP Pulse Ox 98 F 85 19 102/64 100 04/29/20 14:30 04/29/20 14:30 04/29/20 14:30 04/29/20 14:30 04/29/20 14:30 - Notes Notes: PHYSICAL EXAMINATION: Physical Exam: General: Well-nourished well-developed in no acute distress HEENT: NC/AT, pupils equal round and reactive to light, MM moist,nares clear, oropharynx clear, airway patent Neck: supple, no adenopathy, no masses. Good range of motion Lungs: clear, no wheezing, no rales no rhonchi CVS: Regular rate and rhythm no murmur gallop or rub Abdomen: Soft, active, nontender, no masses, no hepatosplenomegaly Ext: No edema, clubbing or cyanosis. Neuro: Alert and responsive, moving all 4 extremities on command, cranial nerves intact, no focal findings Skin: Left breast with a approximately 6 cm firm mass in the left breast. No drainage, + tenderness, no axillary adenopathy PSYCH: Normal mood, normal affect. Course - Re-evaluation Re-evalutation: 04/29/20 18:57 I have spoken to the surgicalist, Dr. Hernandez, he has requested that a rapid coronavirus test be performed on the patient and he will evaluate the patient for further management. - Vital Signs Vital signs: Temp Pulse Resp BP Pulse Ox 98 F 85 19 102/64 100 04/29/20 14:30 04/29/20 14:30 04/29/20 14:30 04/29/20 14:30 04/29/20 14:30 - Laboratory Result Diagrams: 04/29/20 17:31 04/29/20 17:31 Laboratory results interpreted by me: 04/29/20 04/29/20 17:31 17:31 WBC 16.8 H Absolute Neuts (auto) 12.4 H Sodium 135.3 L 08/03/20 18:20 I have reviewed laboratory data and used this information for the treatment decisions regarding the patient. Discharge - Discharge Clinical Impression: Left breast abscess Condition: Good Disposition: ADMITTED OBSERVATION Admitting Provider: Surgicalist - Dr. Hernandez Unit Admitted: Surgical Floor Referrals: BECCA MEJIA MD [Primary Care Provider] - Follow up as needed
--- NOTE | 2020-04-29 19:14 | PDOC H&P ---
History of Present Illness Admission Date/PCP: BECCA MEJIA MD Patient complains of: Left breast abscess History of Present Illness: ALDAIR SHERIFF is a 24 year old female Presents to the emergency department via ground rescue complaining of increased swelling, pain, redness, and multicolored discharge from her left nipple. Patient has a history of new left breast abscess going back 2 and half weeks ago after she was seen at [facility], started on antibiotics, and had an ultrasound on outpatient basis which showed an abscess. Patient has been on 2 courses of oral antibiotics without resolution. She seen the emergency department where she is found to have a swollen red tender large left breast, leukocytosis 16,000, and repeat ultrasound showing left breast abscess by report although formal interpretation not posted. Surgery has seen the patient, admitted the patient for definitive management. Patient denies previous abscess. She has a history of nipple piercing, and smoking. Past Medical History Past Medical History: ADD, anxiety disorder, smoking abuse GERD Cardiac Medical History: Denies: Coronary Artery Disease, Myocardial Infarction, Hypertension Pulmonary Medical History: Denies: Asthma, Bronchitis, Chronic Obstructive Pulmonary Disease (COPD), Pneumonia Neurological Medical History: Denies: Seizures Malignancy Medical History: Denies: Breast Cancer, Cervical Cancer, Ovarian Cancer GI Medical History: Reports: Gastroesophageal Reflux Disease Denies: Hiatal Hernia Musculoskeltal Medical History: Reports: Arthritis - rheumatoid knees Denies: Fibromyalgia Psychiatric Medical History: Reports: Attention Deficit Hyperactivity Disorder, Bipolar Disorder - not on medication Denies: Depression, Post Traumatic Stress Disorder Hematology: Reports: Anemia - hx Past Surgical History Past Surgical History: section and fracture of the lower extremities repaired Past Surgical History: Reports: Section Social History Smoking Status: Current Every Day Smoker Electronic Cigarette use?: No Family History Family History: None, Reviewed & Not Pertinent Parental Family History Reviewed: No Children Family History Reviewed: No Sibling(s) Family History Reviewed.: No Medication/Allergy Home Medications: Ibuprofen [Motrin 800 mg Tablet] 800 mg PO Q8HP PRN #60 tablet 10/21/18 Oxycodone HCl/Acetaminophen [Percocet 5-325 mg Tablet] 1 tab PO Q4HP PRN #20 tablet 02/13/19 Allergies/Adverse Reactions: Penicillins Allergy (Severe, Verified 02/09/19 10:49) Anaphylaxis cephalexin [From Keflex] Adverse Reaction (Severe, Verified 04/29/20 16:00) GI upset Review of Systems Constitutional: PRESENT: anorexia, other - Has any new in 3 days Eyes: ABSENT: visual disturbances Ears: ABSENT: hearing changes Breasts: PRESENT: other - As per HPI Cardiovascular: ABSENT: chest pain, dyspnea on exertion, edema, orthropnea, palpitations Respiratory: ABSENT: cough, hemoptysis Gastrointestinal: ABSENT: abdominal pain, constipation, diarrhea, hematemesis, hematochezia, nausea, vomiting Genitourinary: ABSENT: dysuria, hematuria Musculoskeletal: PRESENT: other - Left chest wall pain Neurological: ABSENT: abnormal gait, abnormal speech, confusion, dizziness, focal weakness, syncope Physical Exam Vital Signs: Temp Pulse Resp BP Pulse Ox 98 F 85 19 102/64 100 04/29/20 14:30 04/29/20 14:30 04/29/20 14:30 04/29/20 14:30 04/29/20 14:30 Intake & Output 04/28/20 04/29/20 04/30/20 06:59 06:59 06:59 Intake Total 1000 Balance 1000 Weight 84.7 kg General appearance: PRESENT: mild distress, obese Head exam: PRESENT: normocephalic Eye exam: PRESENT: EOMI Mouth exam: PRESENT: dry mucosa Neck exam: PRESENT: full ROM Respiratory exam: PRESENT: rhonchi Cardiovascular exam: PRESENT: RRR Pulses: PRESENT: normal carotid pulses, normal radial pulses, normal femoral pulses Breast: PRESENT: Other - Left breast swollen, red, tender, hot, particularly in the retro-inferior aspect; no active drainage. Scarring consistent with previous nipple piercing. Right breast unremarkable axilla unremarkable GI/Abdominal exam: PRESENT: soft Rectal exam: PRESENT: deferred Psychiatric exam: PRESENT: agitated Skin exam: PRESENT: dry Results Laboratory Results: 04/29/20 17:31 04/29/20 17:31 04/29/20 04/29/20 04/29/20 17:31 17:31 17:31 WBC 16.8 H RBC 4.21 Hgb 12.9 Hct 38.9 MCV 92 MCH 30.6 MCHC 33.1 RDW 12.6 Plt Count 337 Seg Neutrophils % 73.7 Sodium 135.3 L Potassium 4.4 Chloride 100 Carbon Dioxide 27 Anion Gap 8 BUN 11 Creatinine 0.77 Est GFR ( Amer) > 60 Glucose 90 Lactic Acid 1.0 Calcium 9.0 Total Bilirubin 0.6 AST 22 Alkaline Phosphatase 81 Total Protein 7.7 Albumin 4.1 Assessment & Plan - Diagnosis (1) Left breast abscess Is this a current diagnosis for this admission?: Yes Plan: Impression: Left breast abscess, large, refractory to outpatient medical management septic left breast with cellulitis, expanding abscess, leukocytosis. Patient needs operative drainage. Recommendations: 1. Admit, IV fluids, intravenous antibiotics, n.p.o. 2. Take patient to the operating for incision drainage packing, drain placement, possible counterincision, franci Aguirre, April 29 3. Because of a cellulitis, leukocytosis and septic picture, recommended 18 to 24 hours of IV antibiotics. This was explained to the patient. (2) Smoker Is this a current diagnosis for this admission?: Yes (3) Obesity Is this a current diagnosis for this admission?: Yes (4) Anxiety disorder Is this a current diagnosis for this admission?: Yes (5) Gastroesophageal reflux disease Is this a current diagnosis for this admission?: Yes - Time Time Spent: 30 to 50 Minutes Critical Time spent with patient: Less than 15 minutes Smoking Cessation Education: 3 to 10 minutes Medications reviewed and adjusted accordingly: Yes Anticipated Discharge Disposition: Home, Self Care Anticipated Discharge Timeframe: within 24 hours - Inpatient Certification Based on my medical assessment, after consideration of the patient's comorbidities, presenting symptoms, or acuity I expect that the services needed warrant INPATIENT care.: Yes I certify that my determination is in accordance with my understanding of Medicare's requirements for reasonable and necessary INPATIENT services [42 CFR 412.3e].: Yes Medical Necessity: Need For IV Fluids, Need for Pain Control, Need for IV Antibiotics, Need for Surgery
[2020-04-29] MEDS ORDERED: CIPROFLOXACIN 400 MG/D5W RTU 400 MG/200 ML RTUPB IV ONE ×2 (20:09→23:38)
--- NOTE | 2020-04-29 20:09 | RADIOLOGY REPORT (SQ) ---
US BREAST UNILATERAL LIMITED HISTORY: Evaluate for abscess. COMPARISON: None. TECHNIQUE: Beaver-scale and color Doppler images of the left breast were obtained. FINDINGS: There is a complex heterogeneous fluid collection in the area of clinical concern in the left breast which measures approximately 6.2 x 4.4 cm. There is mild surrounding color Doppler blood flow. There is overlying subcutaneous edema. IMPRESSION: Approximately 6 cm complex fluid collection in the left breast which may represent abscess, hematoma, or complex seroma, depending on clinical setting. Please note this is a very limited study of the breast parenchyma, and further workup with dedicated breast imaging, possibly including mammography and/or diagnostic workup, should be performed by a dedicated breast radiologist.
[2020-04-29] MEDS ORDERED: LIDOCAINE 0.5% INJ-PF (5 MG/ML) 50 ML SDV ONE (20:13)
[2020-04-29] MEDS ORDERED: BUPIVACAINE HCL 0.25 % INJ/PF (2.5 MG/1 ML) 30 ML VIAL ONE (20:13)
[2020-04-29] MEDS: RINGERS SOLUTION,LACTATED 1,000 ML IV PRN ×2 (20:22→23:50)
[2020-04-29] MEDS ORDERED: LIDOCAINE 2% INJ-PF (20 MG/ML) 10 ML AMPUL ONE (20:32)
[2020-04-29] MEDS ORDERED: HYDROMORPHONE HCL INJ/PF 2 MG/ML AMPULE ONE (20:32)
[2020-04-29] MEDS ORDERED: MIDAZOLAM 2 MG/2 ML INJ ONE (20:32)
[2020-04-29] MEDS ORDERED: ONDANSETRON HCL INJ/PF 4 MG/2 ML SDV ONE (20:33)
[2020-04-29] MEDS ORDERED: PROPOFOL INJ 200 MG/20 ML VIAL IV ONE (20:33)
[2020-04-29] MEDS ORDERED: DIPHENHYDRAMINE HCL 50 MG/ML VIAL IV PRN (21:28)
[2020-04-29] MEDS ORDERED: FENTANYL CITRATE INJ/PF 100 MCG/2 ML AMPUL IV PRN ×3 (21:28)
[2020-04-29] MEDS ORDERED: OXYCODONE-ACETAMINOPHEN 5-325 MG TABLET PO PRN ×2 (21:28)
[2020-04-29] MEDS ORDERED: PROMETHAZINE HCL INJ 25 MG/1 ML VIAL IV PRN ×2 (21:28)
[2020-04-29] MEDS ORDERED: ONDANSETRON HCL INJ/PF 4 MG/2 ML SDV IV PRN (21:28)
[2020-04-29] MEDS ORDERED: MEPERIDINE HCL/PF INJ 25 MG/1 ML DISP.SYRIN IV PRN (21:28)
--- NOTE | 2020-04-29 21:40 | Operative Report ---
Operative Report DATE OF SURGERY: 04/29/20 PREOPERATIVE DIAGNOSIS: 1. Large left breast abscess. 2. Smoker POSTOPERATIVE DIAGNOSIS: Same OPERATION: Incision, drainage, and drain placement left breast abscess SURGEON: LUCRECIA CHIU ANESTHESIA: GA TISSUE REMOVED OR ALTERED: 400 cc of pus COMPLICATIONS: None ESTIMATED BLOOD LOSS: Minimal INTRAOPERATIVE FINDINGS: See below PROCEDURE: Patient was taken from the preop holding to the main operating room where general anesthesia was induced via LMA. Left breast prepped draped sterile fashion Surgical plan surgical timeout were conducted. The skin along the areolar border from 4:00 to 6 o'clock position was anesthetized with quarter percent Marcaine. Approximately 2 and half centimeter incision was made along the inferior areolar border. The knife was used to incise the subcutaneous tissue, and superficial breast tissue and then used to enter the very large pus pocket. The index finger was used to open up the deeper tissues, and approximately 400 cc of foul-smelling yellow purulent pus was drained from the left breast. There was no significant tracking of the abscess cavity. Occupied approximately one half of the breast by volume. It was irrigated with 2 L of saline, then a large Malecot 26 [place] drain was placed into the cavity. The initial incision was closed around the Malecot drain with 3 interrupted 2-0 Prolene sutures, 1 of which was used to secure the drain. The drain was irrigated with saline to ensure patency. We felt the operation was complete. Sponge and counts are correct. 4 x 4's were applied. Patient tolerated the procedure well, extubated, taken to the recovery room in stable condition.
[2020-04-29] MEDS ORDERED: CIPROFLOXACIN 400 MG/D5W RTU 400 MG/200 ML RTUPB IV SCH (22:00)
[2020-04-29] MEDS ORDERED: FENTANYL CITRATE INJ/PF 100 MCG/2 ML AMPUL ONE (22:02)
[2020-04-29] MEDS ORDERED: ACETAMINOPHEN 1,000 MG/100 ML RTUPB IV ONE (23:24)
[2020-04-29] MEDS: OXYCODONE-ACETAMINOPHEN 5-325 MG TABLET PO PRN (23:51)
[2020-04-30] MEDS ORDERED: ACETAMINOPHEN INJ/PF 1000 MG/100 ML SDV IV SCH
[2020-04-30] MEDS ORDERED: ONDANSETRON HCL INJ/PF 4 MG/2 ML SDV IV PRN (04:07)
[2020-04-30] MEDS: OXYCODONE-ACETAMINOPHEN 5-325 MG TABLET PO PRN ×2 (05:52→11:29)
[2020-04-30] MEDS: RINGERS SOLUTION,LACTATED 1,000 ML IV PRN (05:54)
[2020-04-30] MEDS ORDERED: ACETAMINOPHEN 1,000 MG/100 ML RTUPB IV SCH ×2 (09:00)
--- NOTE | 2020-04-30 09:58 | PDOC DISCHARGE SUMMARY ---
General - Admit/Disc Date/PCP Admission Date/Primary Care Provider: 04/29/20 19:33 BECCA MEJIA MD Discharge Date: 04/30/20 - Discharge Diagnosis Final Diagnosis: Left breast abscess - Assessment Summary: This is a 24-year-old female who was admitted with a large left breast abscess she was taken to surgery last night where she underwent incision and drainage and drain remains in place. She was started on IV ciprofloxacin for her abscess. The following day she is afebrile with stable vital signs tolerating a diet and ready for discharge home. She will be discharged home on p.o.'s ciprofloxacin for antibiotic as well as some pain medicine medicine. Sure we fall although [facility] surgical clinic in 7 to 10 days for drain removal - Additional Information Resuscitation Status: Full Code Discharge Diet: As Tolerated Discharge Activity: Activity As Tolerated, No Lifting Over 10 Pounds Referrals: BECCA MEJIA MD [Primary Care Provider] - Follow up as needed Prescriptions: Ciprofloxacin 500 mg PO BID #10 ml Home Medications: Ciprofloxacin 500 mg PO BID #10 ml 04/30/20 History of Present Illiness History of Present Illness: ALDAIR SHERIFF is a 24 year old female Physical Exam Vital Signs: Temp Pulse Resp BP Pulse Ox 98.3 F 57 L 16 100/52 L 98 04/30/20 08:00 04/30/20 08:00 04/30/20 08:00 04/30/20 08:00 04/30/20 08:00 Intake & Output 04/29/20 04/30/20 05/01/20 06:59 06:59 06:59 Intake Total 4893 Output Total 1220 Balance 3673 Weight 84.7 kg Results Laboratory Results: WBC 16.8 10^3/uL (4.0-10.5) H 04/29/20 17:31 RBC 4.21 10^6/uL (3.72-5.28) 04/29/20 17:31 Hgb 12.9 g/dL (12.0-15.5) 04/29/20 17:31 Hct 38.9 % (36.0-47.0) 04/29/20 17:31 MCV 92 fl (80-97) 04/29/20 17:31 MCH 30.6 pg (27.0-33.4) 04/29/20 17:31 MCHC 33.1 g/dL (32.0-36.0) 04/29/20 17: RDW 12.6 % (11.5-14.0) 04/29/20 17:31 Plt Count 337 10^3/uL (150-450) 04/29/20 17:31 Lymph % (Auto) 17.6 % (13-45) 04/29/20 17: [place] % (Auto) 6.7 % (3-13) 04/29/20 17: Eos % (Auto) 1.6 % (0-6) 04/29/20 17: Baso % (Auto) 0.4 % (0-2) 04/29/20 17: Absolute Neuts (auto) 12.4 10^3/uL (1.7-8.2) H 04/29/20 17: Absolute Lymphs (auto) 3.0 10^3/uL (0.5-4.7) 04/29/20 17: Absolute Monos (auto) 1.1 10^3/uL (0.1-1.4) 04/29/20 17: Absolute Eos (auto) 0.3 10^3/uL (0.0-0.6) 04/29/20 17: Absolute Basos (auto) 0.1 10^3/uL (0.0-0.2) 04/29/20 17: Seg Neutrophils % 73.7 % (42-78) 04/29/20 17: Sodium 135.3 mmol/L (137-145) L 04/29/20 17: Potassium 4.4 mmol/L (3.6-5.0) 04/29/20 17: Chloride 100 mmol/L (98-107) 04/29/20 17: Carbon Dioxide 27 mmol/L (22-30) 04/29/20 17:31 Anion Gap 8 (5-19) 04/29/20 17:31 BUN 11 mg/dL (7-20) 04/29/20 17:31 Creatinine 0.77 mg/dL (0.52-1.25) 04/29/20 17:31 Est GFR ( Amer) > 60 (>60) 04/29/20 17:31 Est GFR (MDRD) Non-Af > 60 (>60) 04/29/20 17:31 Glucose 90 mg/dL (75-110) 04/29/20 17:31 Lactic Acid 1.0 mmol/L (0.7-2.1) 04/29/20 17:31 Calcium 9.0 mg/dL (8.4-10.2) 04/29/20 17:31 Total Bilirubin 0.6 mg/dL (0.2-1.3) 04/29/20 17:31 Direct Bilirubin 0.1 mg/dL (0.0-0.4) 04/29/20 17:31 Neonat Total Bilirubin Not Reportable 04/29/20 17:31 Neonat Direct Bilirubin Not Reportable 04/29/20 17:31 Neonat Indirect Bili Not Reportable 04/29/20 17:31 AST 22 U/L (14-36) 04/29/20 17:31 ALT 18 U/L (<35) 04/29/20 17:31 Alkaline Phosphatase 81 U/L (38-126) 04/29/20 17:31 Total Protein 7.7 g/dL (6.3-8.2) 04/29/20 17:31 Albumin 4.1 g/dL (3.5-5.0) 04/29/20 17:31 SARS-CoV-2 (PCR) NEGATIVE (NEGATIVE) 04/29/20 18:49 Impressions: Breast Ultrasound 04/29/20 00:00 IMPRESSION: Approximately 6 cm complex fluid collection in the left breast which may represent abscess, hematoma, or complex seroma, depending on clinical setting. Please note this is a very limited study of the breast parenchyma, and further workup with dedicated breast imaging, possibly including mammography and/or diagnostic workup, should be performed by a dedicated breast radiologist.
[2020-04-30] MEDS ORDERED: DOCUSATE SODIUM 100 MG CAPSULE PO SCH (10:00)
[2020-04-30 10:36] VITALS: BP 102/64
== END 2020-04-30 11:37 | disposition home or self-care (01) ==
LOC: ER 14:18 → EH 19:33 → 2N 22:32
PROVIDERS: ATTEND Surgery
PROC: 0J960ZZ Drainage of Chest Subcutaneous Tissue and Fascia, Open Approach (ICD-10-PCS; principal; 2020-04-29 20:00)
DX: N61.1 Abscess of the breast and nipple (principal); F98.8 Other specified behavioral and emotional disorders with onset usually occurring in childhood and adolescence; F41.9 Anxiety disorder, unspecified; F17.200 Nicotine dependence, unspecified, uncomplicated; K21.9 Gastro-esophageal reflux disease without esophagitis; M06.9 Rheumatoid arthritis, unspecified; F31.9 Bipolar disorder, unspecified; D64.9 Anemia, unspecified; R63.0 Anorexia; E66.9 Obesity, unspecified; Z20.828 Contact with and (suspected) exposure to other viral communicable diseases; Z88.1 Allergy status to other antibiotic agents; Z88.0 Allergy status to penicillin
CPT/HCPCS: 99284; 96361; 96374; 36415; 87040; 87070; 87205; 83605; 85025; 87635; 87075; 80053; 76642; 10060; C1729; J2250; J3010; J3490 ×3; J1170; J2405 ×2; J7030; J7120 ×2; J2704; J0744; J0131 ×2; C9803; 400; 99140; L8000

== ENCOUNTER 2020-08-11 05:34 | Inpatient (IN) | payer MEDICAID ==
[2020-08-11] MEDS ORDERED: CIPROFLOXACIN 400 MG/D5W RTU 400 MG/200 ML RTUPB IV ONE (06:54)
[2020-08-11] MEDS ORDERED: METRONIDAZOLE 500 MG/NS RTU 500 MG/100 ML RTUPB IV ONE (06:54)
[2020-08-11] MEDS ORDERED: NORMAL SALINE 1000 ML 1,000 ML IV ONE ×2 (06:54→10:43)
[2020-08-11] MEDS ORDERED: HYDROMORPHONE HCL INJ/PF 2 MG/ML AMPULE IV ONE ×2 (06:56→10:44)
[2020-08-11] MEDS ORDERED: METOCLOPRAMIDE HCL INJ/PF 10 MG/2 ML SDV IV ONE ×2 (06:57→10:45)
[2020-08-11 08:25] LABS: INTERNATIONAL RATION (INR) 1.04; PROTHROMBIN TIME 13.8 SEC (11.4-15.4)
[2020-08-11 08:35] LABS: HEMOGLOBIN 13.3 g/dL (12.0-15.5); MEAN CORPUSCULAR HEMOGLOBIN 30.3 pg (27.0-33.4); MEAN CORPUSCULAR HGB CONC 33.2 g/dL (32.0-36.0); MEAN CORPUSCULAR VOLUME 91 fl (80-97); PLATELET COUNT 285 10^3/uL (150-450); RED BLOOD COUNT 4.38 10^6/uL (3.72-5.28); RED CELL DISTRIBUTION WIDTH 13.1 % (11.5-14.0); WHITE BLOOD COUNT 20.5 10^3/uL (4.0-10.5)
[2020-08-11 08:39] LABS: ALBUMIN 4.3 g/dL (3.5-5.0); ALKALINE PHOSPHATASE 84 U/L (38-126); ANION GAP 15 (5-19); ASPARTATE AMINO TRANSFERASE 18 U/L (14-36); BILIRUBIN,DIRECT 0.1 mg/dL (0.0-0.4); BILIRUBIN,TOTAL 0.5 mg/dL (0.2-1.3); BLOOD UREA NITROGEN 11 mg/dL (7-20); CALCIUM 9.1 mg/dL (8.4-10.2); CARBON DIOXIDE 22 mmol/L (22-30); CHLORIDE 101 mmol/L (98-107); GLUCOSE 95 mg/dL (75-110); TOTAL PROTEIN 7.7 g/dL (6.3-8.2)
--- NOTE | 2020-08-11 09:04 | RADIOLOGY REPORT (SQ) ---
EXAM DESCRIPTION: U/S BREAST UNILATERAL LIMITED IMAGES COMPLETED DATE/TIME: 08/11/2020 8:38 am REASON FOR STUDY: left breast mass/abscess COMPARISON: None TECHNIQUE: Static and Realtime grayscale interrogation of focal area(s) of concern in the left breas t(s) acquired. Selected color doppler/spectral images saved to PACS. LIMITATIONS: None. FINDINGS: Masses:At the 6 o'clock position there is a 6.7 x 4.1 x 5.9 cm ill-defined heterogeneous p redominantly hypo echoic collection with posterior acoustic enhancement. Architecture:It Lead worksheet indicates overlying skin erythema and inverted nipple. Other: None. IMPRESSION: Constellation of findings most consistent with a large abscess at the 6 o'clock positio n. BIRAD: 1 Negative. RECOMMENDATION: RECOMMENDED FOLLOW-UP: Follow-up as clinically indicated. COMMENT: The [employer] ([employer]) has developed recommendations for screening MRI of the breasts in certain patient populations, to be used in conjunction with mammography. Breast MRI s urveillance may be appropriate for women with more than 20% lifetime risk of developing breast cancer as determined by genetic testing, significant family history of the disease, or history of mantle r adiation for Hodgkins Disease. ACR Practice Guidelines 2008. TECHNICAL DOCUMENTATION: FINDING NUMBER: (1) ASSESSMENT: (1) JOB ID: [id number] 2010 [employer]- All Rights Reserved Reading location - IP/workstation name: [email or web address]
[2020-08-11 09:12] LABS: ABSOLUTE LYMPHOCYTES# (MANUAL) 3.9 10^3/uL (0.5-4.7); BASOPHILS % (MANUAL) 0 % (0-2); EOSINOPHILS % (MANUAL) 1 % (0-6); LYMPHOCYTES % (MANUAL) 18 % (13-45); MONOCYTES % (MANUAL) 5 % (3-13); SEGMENTED NEUTROPHILS % (MAN) 75 % (42-78); TOTAL CELLS COUNTED 100
[2020-08-11 09:15] LABS: PLATELET COMMENT ADEQUATE; RBC MORPHOLOGY COMMENT NORMO-CYTIC/CHROMIC
[2020-08-11] MEDS ORDERED: ACETAMINOPHEN 325 MG TABLET PO ONE (09:55)
--- NOTE | 2020-08-11 10:07 | ER Document Report ---
Entered by SIMBA ANGEL SCRIBE 08/11/20 0619 Acting as scribe for:MATT SNOW MD ED Breast Problem - General Chief Complaint: Breast Problem Stated Complaint: BREAST PROBLEM Primary Care Provider: BECCA MEJIA MD [Primary Care Provider] - Follow up as needed Mode of Arrival: Ambulatory Information source: Patient Notes: This 25 year old female patient presents to the ED today for evaluation of what initially started out as a "knot" last week and then developed with increased swelling, erythema, and pain described as a pressure in the left breast the last x4 days. Patient states that she was seen here on 04/29 for the same complaint and was diagnosed with a left breast abscess and had to undergo emergency I&D with drain placement which was done by Dr. Hernandez. She mentions that she had an appointment on 08/08 at [facility] for a mammogram, but she was unable to make it. Denies fever or chills. Last meal was x2 days ago. TRAVEL OUTSIDE OF THE [place] IN LAST 30 DAYS: No - Related Data Allergies/Adverse Reactions: Penicillins Allergy (Severe, Verified 04/30/20 09:01) Anaphylaxis cephalexin [From Keflex] Adverse Reaction (Severe, Verified 04/30/20 09:01) GI upset Home Medications: adderall Past Medical History - General Information source: Patient, [facility] Records - Social History Smoking Status: Current Every Day Smoker Smoking Education Provided: No Frequency of alcohol use: None Drug Abuse: None Family History: Reviewed & Not Pertinent Patient has suicidal ideation: No Patient has homicidal ideation: No GI Medical History: Reports: Hx Gastroesophageal Reflux Disease Musculoskeletal Medical History: 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 Psychiatric Medical History: Reports: Hx Attention Deficit Hyperactivity Disorder, Hx Bipolar Disorder - not on medication Traumatic Medical History: Reports: Hx Fractures - RIGHT LEG, bilateral ankles, right wrist Past Surgical History: Reports: Hx Section, Hx Orthopedic Surgery - right leg - Immunizations Hx Diphtheria, Pertussis, Tetanus Vaccination: Yes Review of Systems - Review of Systems Constitutional: See HPI EENT: No symptoms reported Cardiovascular: No symptoms reported Respiratory: No symptoms reported Gastrointestinal: No symptoms reported Genitourinary: No symptoms reported Female Genitourinary: No symptoms reported Musculoskeletal: No symptoms reported Skin: See HPI Hematologic/Lymphatic: No symptoms reported Neurological/Psychological: No symptoms reported -: Yes All other systems reviewed and negative Physical Exam - Vital signs Vitals: Temp Pulse Resp BP Pulse Ox 98.0 F 95 20 124/63 98 08/11/20 05:41 08/11/20 05:41 08/11/20 05:41 08/11/20 05:41 08/11/20 05:41 Interpretation: Normal - General General appearance: Alert In distress: Moderate - secondary to pain - HEENT Head: Normocephalic, Atraumatic Eyes: Normal Pupils: PERRL - Respiratory Respiratory status: No respiratory distress Chest status: Nontender Breath sounds: Normal Chest palpation: Normal - Cardiovascular Rhythm: Regular Heart sounds: Normal auscultation Murmur: No - Abdominal Inspection: Obese Distension: No distension Bowel sounds: Normal Tenderness: Nontender - Abdomen soft Organomegaly: No organomegaly - Back Back: Normal, Nontender - Extremities General upper extremity: Normal inspection General lower extremity: Normal inspection. No: Edema - Neurological Neuro grossly intact: Yes Orientation: AAOx4 [place] Coma Scale Eye Opening: Spontaneous [place] Coma Scale Verbal: Oriented [place] Coma Scale Motor: Obeys Commands [place] Coma Scale Total: 15 - Psychological Associated symptoms: Normal affect, Normal mood - Skin Skin irregularity: Tender indurated area - There is a 25 x 3 cm area that is swollen, red, indurated, and tender to palpation on the left breast. Left nipple is inverted. Course - Re-evaluation Re-evalutation: 08/11/20 11:30 Patient resting comfortably at this time. Patient has been given a repeat dose of Dilaudid for her breast pain. Dr. Nguyen has been at bedside and has reported to me that he plans to take her to the operating room today pending the COVID-19 testing rapid test. Patient is n.p.o. and is to remain n.p.o. at this time. - Vital Signs Vital signs: Temp Pulse Resp BP Pulse Ox 98.0 F 95 20 124/63 98 08/11/20 05:41 08/11/20 05:41 08/11/20 05:41 08/11/20 05:41 08/11/20 05:41 08/11/20 11:32 Vital signs stable - Laboratory Result Diagrams: 08/11/20 07:54 08/11/20 07:54 Laboratory results interpreted by me: 08/11/20 11:32 Leukocytosis of 20,000 white count otherwise unremarkable exam. - Diagnostic Test Radiology reviewed: Image reviewed, Reports reviewed Radiology results interpreted by me: 08/11/20 09:21 Breast Ultrasound 08/11/20 06:56 IMPRESSION: Constellation of findings most consistent with a large abscess at the 6 o'clock position. Breast ultrasound shows a large abscess at the 6 o'clock position. - Consults Dr. Nguyen, Surgicalist Time consulted: 10:41 Reason for consultation: 08/11/20 10:41 Recurrent left breast abscess. Prior I&D by David on 04/29/2020 Consulted provider: will come to ER Discharge - Discharge Clinical Impression: Left breast abscess, Anxiety disorder Condition: Stable Disposition: ADMITTED INPATIENT Admitting Provider: Surgicalist Evonne Nguyen MD Unit Admitted: Surgical Floor Referrals: BECCA MEJIA MD [Primary Care Provider] - Follow up as needed I personally performed the services described in the documentation, reviewed and edited the documentation which was dictated to the scribe in my presence, and it accurately records my words and actions.
--- NOTE | 2020-08-11 11:33 | PDOC H&P ---
History of Present Illness Admission Date/PCP: BECCA MEJIA MD History of Present Illness: ALDAIR SHERIFF is a 25 year old female This 25 year old female patient presents to the ED today for evaluation of what initially started out as a "knot" last week and then developed with increased swelling, erythema, and pain described as a pressure in the left breast the last x4 days. Patient states that she was seen here on 04/29 for the same complaint and was diagnosed with a left breast abscess and had to undergo emergency I&D with drain placement which was done by Dr. Hernandez. She mentions that she had an appointment on 08/08 at [facility] for a mammogram, but she was unable to make it. Denies fever or chills. Last meal was x2 days ago Past Medical History Cardiac Medical History: Denies: Coronary Artery Disease, Myocardial Infarction, Hypertension Pulmonary Medical History: Denies: Asthma, Bronchitis, Chronic Obstructive Pulmonary Disease (COPD), Pneumonia Neurological Medical History: Denies: Seizures Malignancy Medical History: Denies: Breast Cancer, Cervical Cancer, Ovarian Cancer GI Medical History: Reports: Gastroesophageal Reflux Disease Denies: Hiatal Hernia Musculoskeltal Medical History: Reports: Arthritis - rheumatoid knees Denies: Fibromyalgia Psychiatric Medical History: Reports: Attention Deficit Hyperactivity Disorder, Bipolar Disorder - not on medication Denies: Depression, Post Traumatic Stress Disorder Hematology: Reports: Anemia - hx Past Surgical History Past Surgical History: Reports: Section, Orthopedic Surgery - right leg, Other - i and d of left breast abscess Social History Smoking Status: Current Every Day Smoker Frequency of Alcohol Use: Occasional Hx Recreational Drug Use: Yes Drugs: Marijuana Hx Prescription Drug Abuse: No Family History Family History: Reviewed & Not Pertinent Parental Family History Reviewed: No Children Family History Reviewed: NA Sibling(s) Family History Reviewed.: NA Medication/Allergy Home Medications: Ciprofloxacin 500 mg PO BID #10 ml 04/30/20 Ibuprofen [Motrin 800 mg Tablet] 800 mg PO Q8H PRN #30 tab 04/30/20 Ondansetron [Zofran Odt 4 mg Tablet] 4 mg PO Q4HP PRN #30 tab.rapdis 04/30/20 Tramadol HCl [Ultram 50 mg Tablet] 50 mg PO Q6HP PRN #40 tablet 04/30/20 Allergies/Adverse Reactions: Penicillins Allergy (Severe, Verified 04/30/20 09:01) Anaphylaxis cephalexin [From Keflex] Adverse Reaction (Severe, Verified 04/30/20 09:01) GI upset Review of Systems Constitutional: PRESENT: chills, weakness Eyes: PRESENT: as per HPI Ears: PRESENT: as per HPI Nose, Mouth, and Throat: ABSENT: as per HPI, headache(s), mouth pain, sore throat, vertigo, other Breasts: PRESENT: as per HPI Cardiovascular: ABSENT: chest pain, dyspnea on exertion, edema, orthropnea, palpitations Respiratory: ABSENT: cough, hemoptysis Gastrointestinal: ABSENT: abdominal pain, constipation, diarrhea, hematemesis, hematochezia, nausea, vomiting Genitourinary: ABSENT: dysuria, hematuria Musculoskeletal: ABSENT: joint swelling Neurological: ABSENT: as per HPI, abnormal gait, abnormal movements, abnormal sp eech, confusion, convulsions, dizziness, focal weakness, frequent falls, lack of coordination, memory loss, numbness, paresthesias, restless legs, syncope, tingling, tremor(s), vertigo, weakness, other Psychiatric: ABSENT: anxiety, depression, homidical ideation, suicidal ideation Endocrine: ABSENT: as per HPI, cold intolerance, flushing, heat intolerance, menstrual abnormalities, polydipsia, polyphagia, polyuria, other Hematologic/Lymphatic: ABSENT: as per HPI, easy bleeding, easy bruising, lymphadenopathy, other Allergic/Immunologic: ABSENT: as per HPI, seasonal rhinorrhea, other Physical Exam Vital Signs: Temp Pulse Resp BP Pulse Ox 98.0 F 95 20 124/63 98 08/11/20 05:41 08/11/20 05:41 08/11/20 05:41 08/11/20 05:41 08/11/20 05:41 Intake & Output 08/10/20 08/11/20 08/12/20 06:59 06:59 06:59 Intake Total 1200 Balance 1200 Weight 92 kg General appearance: PRESENT: obese Head exam: PRESENT: atraumatic Eye exam: PRESENT: EOMI Ear exam: PRESENT: normal external ear exam Mouth exam: PRESENT: moist Teeth exam: PRESENT: poor dentation Neck exam: PRESENT: full ROM Cardiovascular exam: PRESENT: RRR Pulses: PRESENT: normal femoral pulses Vascular exam: PRESENT: normal capillary refill Breast: PRESENT: Other - large left breast abscess 6:00 extending to 2:00,, firm tender cellulitic GI/Abdominal exam: PRESENT: soft Rectal exam: PRESENT: deferred Extremities exam: PRESENT: full ROM Musculoskeletal exam: PRESENT: full ROM Neurological exam: PRESENT: alert, oriented to person, oriented to place Psychiatric exam: PRESENT: appropriate affect Skin exam: PRESENT: dry Results Laboratory Results: 08/11/20 07:54 08/11/20 07:54 08/11/20 08/11/20 08/11/20 07:54 07:54 07:54 WBC 20.5 H RBC 4.38 Hgb 13.3 Hct 40.0 MCV 91 MCH 30.3 MCHC 33.2 RDW 13.1 Plt Count 285 Seg Neutrophils % Not Reportable Sodium 138.3 Potassium 4.0 Chloride 101 Carbon Dioxide 22 Anion Gap 15 BUN 11 Creatinine 0.77 Est GFR ( Amer) > 60 Glucose 95 Lactic Acid 1.2 Calcium 9.1 Total Bilirubin 0.5 AST 18 Alkaline Phosphatase 84 Total Protein 7.7 Albumin 4.3 Serum HCG, Qual 08/11/20 07:54 WBC RBC Hgb Hct MCV MCH MCHC RDW Plt Count Seg Neutrophils % Sodium Potassium Chloride Carbon Dioxide Anion Gap BUN Creatinine Est GFR ( Amer) Glucose Lactic Acid Calcium Total Bilirubin AST Alkaline Phosphatase Total Protein Albumin Serum HCG, Qual NEGATIVE Impressions: Breast Ultrasound 08/11/20 06:56 IMPRESSION: Constellation of findings most consistent with a large abscess at the 6 o'clock position. Assessment & Plan - Time Anticipated Discharge Disposition: Home, Self Care Anticipated Discharge Timeframe: within 24 hours - Plan Summary Plan Summary: large recurrent left breast abscess plan iv abx to or for i and d
--- NOTE | 2020-08-11 12:19 | RADIOLOGY REPORT (SQ) ---
EXAM DESCRIPTION: CHEST SINGLE VIEW IMAGES COMPLETED DATE/TIME: 08/11/2020 11:45 am REASON FOR STUDY: Presurgical COMPARISON: None. EXAM PARAMETERS: NUMBER OF VIEWS: One view. TECHNIQUE: Single frontal radiographic view of the chest acquired. RADIATION DOSE: NA LIMITATIONS: None. FINDINGS: LUNGS AND PLEURA: No opacities, masses or pneumothorax. No pleural effusion. MEDIASTINUM AND HILAR STRUCTURES: No masses. Contour normal. HEART AND VASCULAR STRUCTURES: Heart normal in size. Normal vasculature. BONES: No acute findings. HARDWARE: None in the chest. OTHER: No other significant finding. IMPRESSION: NO ACUTE RADIOGRAPHIC FINDING IN THE CHEST. TECHNICAL DOCUMENTATION: JOB ID: [id number] 2010 [employer]- All Rights Reserved Reading location - IP/workstation name: [id number]
[2020-08-11] MEDS ORDERED: FENTANYL CITRATE INJ/PF 100 MCG/2 ML AMPUL ONE (13:26)
[2020-08-11] MEDS ORDERED: KETAMINE HCL INJ 500 MG/10 ML VIAL ONE (13:26)
[2020-08-11] MEDS ORDERED: DEXMEDETOMIDINE INJ 80 MCG/20 ML VIAL IV ONE (13:27)
[2020-08-11] MEDS ORDERED: PROPOFOL INJ 200 MG/20 ML VIAL IV ONE (13:27)
[2020-08-11] MEDS ORDERED: MIDAZOLAM 2 MG/2 ML INJ ONE (13:27)
[2020-08-11] MEDS ORDERED: BUPIVACAINE HCL 0.25% /EPINEPHRINE INJ/PF 30 ML SDV ONE (13:40)
[2020-08-11] MEDS ORDERED: MORPHINE SULFATE 10 MG/ML INJ IV PRN (14:23)
[2020-08-11] MEDS ORDERED: DIPHENHYDRAMINE HCL 50 MG/ML VIAL IV PRN (14:23)
[2020-08-11] MEDS ORDERED: PROMETHAZINE HCL INJ 25 MG/1 ML VIAL IV PRN (14:23)
[2020-08-11] MEDS ORDERED: MEPERIDINE HCL/PF INJ 25 MG/1 ML DISP.SYRIN IV PRN (14:23)
[2020-08-11] MEDS ORDERED: FENTANYL CITRATE INJ/PF 100 MCG/2 ML AMPUL IV PRN ×3 (14:23)
--- NOTE | 2020-08-11 14:34 | Operative Report ---
Nonrecallable Operative Report DATE OF SURGERY: 08/11/20 PREOPERATIVE DIAGNOSIS: Recurrent left breast abscess POSTOPERATIVE DIAGNOSIS: Same OPERATION: Incision and drainage of recurrent left breast abscess SURGEON: YANIRA PARIKH ANESTHESIA: Moderate Sedation TISSUE REMOVED OR ALTERED: None COMPLICATIONS: None ESTIMATED BLOOD LOSS: 5 cc INTRAOPERATIVE FINDINGS: See note PROCEDURE: Patient was brought to the operating awake alert stable condition placed on the operating table in a supine position the left breast was prepped draped usual sterile fashion she is given moderate sedation. Patient had a previous breast abscess drainage with inferior areolar incision that was pointing at this time it appeared that the previous incision had closed too quickly and she was not packing the wound. Upon making a small incision in the previous scar at the 5 o'clock position of the left areola a large amount of pus exuded the wound approximately 150 cc and was sent for culture. It was foul-smelling. Upon visualization of the abscess there was a cavity there was had a clean surface throughout the entire cavity. I therefore placed my finger into the bottom of the cavity and made a counterincision at the inferior aspect of the breast just above the inframammary mammary fold. I placed a 1 inch Jack drain in the depths of the cavity and brought out through that stab wound at the inferior aspect of the breast. I copiously irrigated the breast abscess cavity was normal saline suctioned dry packed it with a Betadine soaked sponge. Sterile dressing was applied. Sponge needle counts were correct x2 the patient was awakened in the operating room transferred recovery in stable condition
--- NOTE | 2020-08-11 14:48 | Discharge Summary ---
Discharge Summary (SDC) - Discharge Final Diagnosis: Recurrent left breast abscess Date of Surgery: 08/11/20 Discharge Date: 08/11/20 Treatment or Instructions: Patient instructed to remove her packing tomorrow afternoon irrigate the wound in the shower with a hand-held shower head at least twice a day with warm water and redress the wound with a sterile gauze Prescriptions: Ciprofloxacin [Cipro] 500 mg PO Q12 #20 tab Ciprofloxacin HCl [Cipro 500 mg Tablet] 500 mg PO Q12 #20 tablet Oxycodone HCl/Acetaminophen [Percocet 10-325 Mg Tablet] 1 each PO Q6HP PRN #15 tablet PRN Reason: Oxycodone HCl/Acetaminophen [Percocet 10-325 Mg Tablet] 1 each PO Q6HP PRN #15 tablet PRN Reason: Referrals: BECCA MEJIA MD [Primary Care Provider] - Follow up as needed Discharge Diet: As Tolerated Discharge Activity: Activity As Tolerated Report the Following to Your Physician Immediately: Unusual Bleeding, Redness - Patient is to follow-up in surgical clinic next week
[2020-08-11 16:33] VITALS: BP 112/57
== END 2020-08-11 16:35 | disposition home or self-care (01) | DRG 601 ==
LOC: ER 05:34 → EH 12:39
PROVIDERS: ADMIT Surgery; ATTEND Surgery
PROC: 0H9U30Z Drainage of Left Breast with Drainage Device, Percutaneous Approach (ICD-10-PCS; principal; 2020-08-11 13:30)
DX: N61.1 Abscess of the breast and nipple (principal); K21.9 Gastro-esophageal reflux disease without esophagitis; Z20.828 Contact with and (suspected) exposure to other viral communicable diseases; F90.9 Attention-deficit hyperactivity disorder, unspecified type; M06.862 Other specified rheumatoid arthritis, left knee; M06.861 Other specified rheumatoid arthritis, right knee; D64.9 Anemia, unspecified; F17.210 Nicotine dependence, cigarettes, uncomplicated; F41.9 Anxiety disorder, unspecified; Z79.899 Other long term (current) drug therapy; Z88.1 Allergy status to other antibiotic agents; Z88.0 Allergy status to penicillin
CPT/HCPCS: 36415; 400; 71045; 76642; 80053; 83605; 84703; 85025; 85610; 87040; 87070; 87075; 87077; 87205; 87635; 99140; C9803; J0744; J1170; J2250; J2704; J2765; J3010; J3490; J7030; L8000